=== PATIENT | female | born 1980 | race Two or more races ===

== ENCOUNTER 2016-09-04 13:18 | Emergency (ER) | payer OTHER ==
[~2016-09-04] VITALS: Ht 157.5 cm; Wt 138.3 kg
[2016-09-04 13:32] VITALS: BP 159/95
[2016-09-04] MEDS ORDERED: AMOX1TAB61 PO (14:02)
--- NOTE | 2016-09-04 14:02 | PHYS DOC ---
Past Medical History Past Medical History: Asthma Past Surgical History: Tonsillectomy Alcohol Use: None Drug Use: None Adult General Chief Complaint Chief Complaint: SORE THROAT HPI HPI Patient is a 35 year old patient presents to the emergency department with a 3 day history of a sore throat. She states she's she's had fevers at night although has taken her temperature. She states she's taken Tylenol for pain and discomfort with minimal relief. Patient denies any nausea vomiting. Review of Systems Review of Systems Constitutional: Fever at home Eyes: Denies change in visual acuity, redness, or eye pain [] HENT: Denies nasal congestion complaint sore throat Respiratory: Denies cough or shortness of breath [] Cardiovascular: No additional information not addressed in HPI [] GI: Denies abdominal pain, nausea, vomiting, bloody stools or diarrhea [] : Denies dysuria or hematuria [] Musculoskeletal: Denies back pain or joint pain [] Integument: Denies rash or skin lesions [] Neurologic: Denies headache, focal weakness or sensory changes [] Endocrine: Denies polyuria or polydipsia [] Allergies Allergies Allergies Coded Allergies Type Severity Reaction Last Updated Verified metformin Allergy Unknown 09/04/16 Yes Physical Exam Physical Exam Constitutional: Well developed, well nourished, no acute distress, non-toxic appearance. [] HENT: Normocephalic, atraumatic, bilateral external ears normal, oropharynx moist, no oral exudates, nose normal. Left tympanic membrane appears to be normal right tympanic membrane appears to be inflamed and red. Throat appears to have postnasal drip. Patient was noted to have frontal and maxillary sinus tenderness. Eyes: PERRLA, EOMI, conjunctiva normal, no discharge. [] Neck: Normal range of motion, no tenderness, supple, no stridor. [] Cardiovascular:Heart rate regular rhythm, no murmur [] Lungs & Thorax: Bilateral breath sounds clear to auscultation [] Skin: Warm, dry, no erythema, no rash. [] Back: No tenderness Extremities: No tenderness, no cyanosis, no clubbing, ROM intact, no edema. [] Neurologic: Alert and oriented X 3, normal motor function, normal sensory function, no focal deficits noted. [] Psychologic: Affect normal, judgement normal, mood normal. [] Current Patient Data Vital Signs Vital Signs Date Time Temp Pulse Resp B/P (MAP) Pulse Ox O2 Delivery O2 Flow Rate FiO2 09/04/16 13:32 98.5 113 22 99 Room Air 98.5 EKG EKG [] Radiology/Procedures Radiology/Procedures [] Course & Med Decision Making Course & Med Decision Making Pertinent Labs and Imaging studies reviewed. (See chart for details) Rapid strep was negative. Patient's will be placed on Augmentin for sinus infection. Also recommended Sudafed to help with the sinus pressure. Also recommended Mucinex DM. Patient agrees with discharge instructions treatment regimens and follow-up recommendations. Recommended plenty of fluids. Tylenol or ibuprofen for pain and discomfort. Patient agrees with discharge instructions treatment regimens and follow-up recommendations. [] Dragon Disclaimer Dragon Disclaimer This electronic medical record was generated, in whole or in part, using a voice recognition dictation system. Departure Departure Impression: Primary Impression: Sinusitis Disposition: HOME, SELF-CARE Condition: STABLE Referrals: PATRIA HUNT MD (PCP) Patient Instructions: Sinusitis, [id number] Additional Instructions: Activity as tolerated. Tylenol or ibuprofen for pain and discomfort. Sudafed will help with the sinus pressure take as directed by real estate sales associate over- the-counter. Mucinex DM will also help with the nasal congestion. Take this as instructed by real estate sales associate [id number]. Drink plenty of fluids. Antibiotic as prescribed x-ray take all the medication as prescribed. If he should start feeling better. Follow-up to primary care physician next 3-5 days. Return back to emergency prior signs symptoms become worse. Scripts Amoxicillin/Potassium Clav (AUGMENTIN 875-125 TABLET) 1 Each Tablet 1 TAB PO BID, #20 TAB Prov: VANDA KELSEY APRN 09/04/16 VANDA KELSEY SHAREPOINT APPLICATION DEVELOPER Sep 04, 2016 14:02
[2016-09-04 15:44] LABS: NEGATIVE OBC STREP NEG; POSITIVE OBC STREP POS
== END 2016-09-04 14:07 | disposition home or self-care (01) ==
LOC: ER 13:18
DX: J32.9 Chronic sinusitis, unspecified (principal); J45.909 Unspecified asthma, uncomplicated; Z88.8 Allergy status to other drugs, medicaments and biological substances
CPT/HCPCS: 87070; 87880; 99283

== ENCOUNTER 2016-09-29 20:04 | Emergency (ER) | payer OTHER ==
[~2016-09-29] VITALS: Ht 157.5 cm; Wt 138.3 kg
[~2016-09-29 20:04] MED LIST: AMOX1TAB61 PO
[2016-09-29 20:11] VITALS: BP 156/93
[2016-09-29] MEDS ORDERED: NAPR500T3 PO (20:29)
[2016-09-29] MEDS ORDERED: PRED20TA PO (20:29)
[2016-09-29] MEDS ORDERED: FLUC150T PO (20:29)
--- NOTE | 2016-09-29 20:30 | PHYS DOC ---
Past Medical History Past Medical History: Asthma Past Surgical History: Tonsillectomy Alcohol Use: None Drug Use: None Adult General Chief Complaint Chief Complaint: SHOULDER INJURY [facility] HPI Patient is a 35 year old female presents to the emergency department stating that she has having right shoulder right elbow pain and discomfort for the last 6 months. She states that she has been seen by her primary care physician and an orthopedic in which they prescribed medication which does not help. She states that she is getting ready to start a new job and needs to find out what she can take to help with the pain and discomfort. Patient states she has an MRI but that's not for 2 weeks. Patient denies any trauma or injury. Patient has full range of motion of the extremities. Patient is right-hand dominant. Patient also states that she has a rash between bilateral thighs. Patient states that she has had this rash for over a year. Patient states that she has been seen by doctors who are unable to identify what the rash is related to. Patient states that it salazar and stings mainly at night when she is trying to sleep. Review of Systems Review of Systems Constitutional: Denies fever or chills [] Eyes: Denies change in visual acuity, redness, or eye pain [] HENT: Denies nasal congestion or sore throat [] Respiratory: Denies cough or shortness of breath [] Cardiovascular: No additional information not addressed in HPI [] GI: Denies abdominal pain, nausea, vomiting, bloody stools or diarrhea [] : Denies dysuria or hematuria [] Musculoskeletal: Denies back pain. Complaining of right shoulder right elbow pain and discomfort. Integument: Complaining of rash on bilateral inner thighs, no skin lesions noted Neurologic: Denies headache, focal weakness or sensory changes [] Endocrine: Denies polyuria or polydipsia [] Allergies Allergies Allergies Coded Allergies Type Severity Reaction Last Updated Verified metformin Allergy Unknown 09/04/16 Yes Physical Exam Physical Exam Constitutional: Well developed, well nourished, no acute distress, non-toxic appearance. [] HENT: Normocephalic, atraumatic, bilateral external ears normal, oropharynx moist, no oral exudates, nose normal. [] Eyes: PERRLA, EOMI, conjunctiva normal, no discharge. [] Neck: Normal range of motion, no tenderness, supple, no stridor. [] Cardiovascular:Heart rate regular rhythm Lungs & Thorax: No respiratory distress noted Skin: Warm, dry, no erythema, evaluation on bilateral inner thighs. Do not appreciate any type of rash noted within the inner thigh area. Back: No tenderness Extremities: Right shoulder, right elbow tenderness, no cyanosis, no clubbing, ROM intact, no edema. Patient with full range of motion noted to both the shoulder in the elbow. She didn't exhibit tenderness in the rotator cuff area of the right shoulder. Peripheral pulses 2+ cap refill brisk less than 2 seconds. Neurologic: Alert and oriented X 3, normal motor function, normal sensory function, no focal deficits noted. [] Psychologic: Affect normal, judgement normal, mood normal. [] Current Patient Data Vital Signs Vital Signs Date Time Temp Pulse Resp B/P (MAP) Pulse Ox O2 Delivery O2 Flow Rate FiO2 09/29/16 20:11 85 16 98 Room Air EKG EKG [] Radiology/Procedures Radiology/Procedures [] Course & Med Decision Making Course & Med Decision Making Pertinent Labs and Imaging studies reviewed. (See chart for details) Spoke with patient regards to the information provided as these symptoms of been going on anywhere from 6 months to one year. Explained to patient that this is a situation like to be taking care of with a primary care physician or orthopedic. Here in the emergency department we rule out emergency type situations. Patient states seems to think that this is an emergency as she states that's why I'm here as this is an emergency. Recommended Benadryl 25 mg every 6 hours to help with the itching and irritation of the areas. Patient will also be provided with a Diflucan in which she can take one tablet today and one tablet in another week if she still has symptoms. Also paged patient on a prednisone to help with the irritation. Patient will also be recommended to follow-up with an orthopedic as which she has been identified. She'll be provided with naproxen 500 mg twice a day. She'll be placed in a sling with recommendations to rest the shoulder and the arm until she follows up with orthopedic. Recommended ice packs on 20 minutes off 20 minutes several times a day to the right shoulder. Patient will be discharged home in stable condition. Signs and symptoms to return back to emergency department as been provided. [place] Disclaimer Dragon Disclaimer This electronic medical record was generated, in whole or in part, using a voice recognition dictation system. Departure Departure Impression: Primary Impression: Right shoulder pain Additional Impressions: Right elbow pain Rash and nonspecific skin eruption Disposition: 01 HOME, SELF-CARE Condition: STABLE Referrals: PATRIA HUNT MD (PCP) PRAMOD REICH MD, LISA MD Patient Instructions: Rash, [id number], Shoulder Pain, [id number], Tennis Elbow, [id number] Additional Instructions: Activity as tolerated. Wear the sling until you follow-up with orthopedic. However take your arm out of the sling 4-5 times a day and do active range of motion. Naproxen as prescribed take this medication with food. If you develop upset stomach stopped taking the medication. Benadryl 25 mg may be taken every 6 hours to help with itching and irritation of your rash. Diflucan 1 tablet today he may repeat the dose of one week. Prednisone may also help with the rash area as well as pain and discomfort to the right shoulder and right elbow. Ice packs to the right shoulder right elbow on 20 minutes off 20 minutes several times a day. Keep the areas between your eyes clean dry and cool to prevent irritation and itching. Follow-up with orthopedic within the next week. Follow-up to primary care physician or assistant head cashier within the next week in regards to your rash. Return to emergency prior signs and symptoms of become worse. Scripts Naproxen (NAPROXEN) 500 Mg Tablet 1 TAB PO BID, #60 TAB Prov: VANDA KELSEY APRN 09/29/16 Prednisone (PREDNISONE) 20 Mg Tablet 40 MG PO DAILY, #14 TAB Prov: VANDA KELSEY APRN 09/29/16 Fluconazole (DIFLUCAN) 150 Mg Tablet 1 TAB PO ONCE, #1 TAB 1 Refill Prov: VANDA KELSEY APRN 09/29/16 Problem Qualifiers VANDA KELSEY APRN Sep 29, 2016 20:30
--- NOTE | 2016-09-30 08:05 | RAD ---
Right elbow, 3 views, 09/29/2016: History: Pain and discomfort No fracture or dislocation is identified. There is mild spurring at the elbow joint. No significant joint effusion is evident. IMPRESSION: 1. Mild degenerative change. 2. No acute bony abnormality is detected. Right shoulder, 3 views, 09/29/2016: No fracture or dislocation is identified. The periarticular soft tissues are unremarkable. IMPRESSION: No acute right shoulder abnormality is detected.
== END 2016-09-29 21:21 | disposition home or self-care (01) ==
LOC: ER 20:04
DX: M25.511 Pain in right shoulder (principal); M25.521 Pain in right elbow; R21 Rash and other nonspecific skin eruption; J45.909 Unspecified asthma, uncomplicated; Z88.8 Allergy status to other drugs, medicaments and biological substances
CPT/HCPCS: 73030; 73080; 99284

== ENCOUNTER → 2017-07-23 | Day surgery (SDC) | payer OTHER ==
[~2017-07-23] MED LIST changes: +0.9 % SODIUM CHLORIDE 10 ML DISP.SYRIN. IV; -AMOX1TAB61 PO; +CALCIUM CARBONATE 500 MG TAB.CHEW PO; +DEXAMETHASONE SOD PHOS 20 MG/5 ML VIAL.; +FAMOTIDINE 20 MG/2 ML VIAL; +HYDROcodone/APAP 5/325MG 1 TAB TABLET PO; +KETOROLAC 30 MG/ML INJ FOR OR. INJ; +LIDOCAINE 1% PF 2 ML VIAL. ID; +LIDOCAINE 2% PF Vial for OR 5 ML VIAL.; +MAG HYDROX/ALUMINUM HYD/SIMETH 30 ML ORAL.SUSP PO; +MORPHINE SULFATE 4 MG/ML DISP.SYRIN. IV; +NALOXONE 0.4 MG/ML VIAL. IV; +ONDANSETRON PF 4 MG/2 ML VIAL.; +ONDANSETRON PF 4 MG/2 ML VIAL. IV; +PROCHLORPERAZINE 10 MG/2 ML VIAL. IV; +PROPOFOL 0 ML IV; +PROPOFOL 20 ML IV; +SEVOFLURANE 31 TO 60 MINUTES. IH; +SIMETHICONE 80 MG TAB.CHEW PO; +diphenhydrAMINE 50 MG/ML VIAL IV; +diphenhydrAMINE HCL 25 MG CAPSULE PO; +fentaNYL PF VIAL 100 MCG/2 ML VIAL; +fentaNYL PF VIAL 100 MCG/2 ML VIAL IV
[2017-07-23] MEDS: IV RINGERS,LACTATED 1000ML 1,000 ML IV (07:00)
[2017-07-23 09:43] LABS: U PREG PATIENT NEGATIVE (NEG)
[2017-07-23 09:44] LABS: NEG OBC UR NEG; POS OBC UR POS
[2017-07-23] MEDS: BUPIVACAINE-EPI 0.25%-1:200000 50 ML VIAL. (11:35)
== END | disposition home or self-care (01) ==
LOC: SURG 08:53
DX: D06.0 Carcinoma in situ of endocervix (principal); N72 Inflammatory disease of cervix uteri; N88.8 Other specified noninflammatory disorders of cervix uteri; N81.2 Incomplete uterovaginal prolapse; Z98.890 Other specified postprocedural states; G43.909 Migraine, unspecified, not intractable, without status migrainosus; J45.909 Unspecified asthma, uncomplicated; E66.9 Obesity, unspecified; Z68.43 Body mass index [BMI] 50.0-59.9, adult; K21.9 Gastro-esophageal reflux disease without esophagitis; F17.210 Nicotine dependence, cigarettes, uncomplicated; E28.2 Polycystic ovarian syndrome; Z88.8 Allergy status to other drugs, medicaments and biological substances; Z82.49 Family history of ischemic heart disease and other diseases of the circulatory system; Z80.0 Family history of malignant neoplasm of digestive organs; Z80.59 Family history of malignant neoplasm of other urinary tract organ
CPT/HCPCS: 57522; 81025; 88305; A7015; J0780; J1100; J1885; J2405; J2704; J3010; S0028

== ENCOUNTER 2017-11-27 06:41 | Emergency (ER) | payer OTHER ==
[~2017-11-27] VITALS: Ht 157.5 cm; Wt 135.4 kg
[~2017-11-27 06:41] MED LIST changes: -0.9 % SODIUM CHLORIDE 10 ML DISP.SYRIN. IV; +ACET325T9 PO; +AMOX1TAB61 PO; -CALCIUM CARBONATE 500 MG TAB.CHEW PO; -DEXAMETHASONE SOD PHOS 20 MG/5 ML VIAL.; -FAMOTIDINE 20 MG/2 ML VIAL; +FLUC150T PO; -HYDROcodone/APAP 5/325MG 1 TAB TABLET PO; -KETOROLAC 30 MG/ML INJ FOR OR. INJ; -LIDOCAINE 1% PF 2 ML VIAL. ID; -LIDOCAINE 2% PF Vial for OR 5 ML VIAL.; -MAG HYDROX/ALUMINUM HYD/SIMETH 30 ML ORAL.SUSP PO; -MORPHINE SULFATE 4 MG/ML DISP.SYRIN. IV; -NALOXONE 0.4 MG/ML VIAL. IV; +NAPR-514 PO; -ONDANSETRON PF 4 MG/2 ML VIAL.; -ONDANSETRON PF 4 MG/2 ML VIAL. IV; +PRED20TA PO; +PROAIR RESPICL90 MCG IH; -PROCHLORPERAZINE 10 MG/2 ML VIAL. IV; -PROPOFOL 0 ML IV; -PROPOFOL 20 ML IV; -SEVOFLURANE 31 TO 60 MINUTES. IH; -SIMETHICONE 80 MG TAB.CHEW PO; -diphenhydrAMINE 50 MG/ML VIAL IV; -diphenhydrAMINE HCL 25 MG CAPSULE PO; -fentaNYL PF VIAL 100 MCG/2 ML VIAL; -fentaNYL PF VIAL 100 MCG/2 ML VIAL IV
--- NOTE | 2017-11-27 08:04 | PHYS DOC ---
Past Medical History Past Medical History: Asthma, Other Additional Past Medical Histor: morbid obesity, PCOD, cervical cancer Past Surgical History: Tonsillectomy, Other Additional Past Surgical Histo: right eye surgery, ear tubes, laser removal of cervical cancer Alcohol Use: None Drug Use: None Adult General Chief Complaint Chief Complaint: VAGINAL PROBLEM HPI HPI 36-year-old female who presents with complaint of vaginal pain, discharge and urinary discomfort that has been present for the last couple of months. She was seen by her provider and had prescribed her some kind of a cream but she is not sure what it was. She states it is just not been working. She rates pain as being moderate and states that pain is worsened with intercourse and with urinating. She denies any abdominal pain, nausea or vomiting. She does indicate that the discharge has had a foul odor to it. Review of Systems Review of Systems Constitutional: Denies fever or chills [] Respiratory: Denies cough or shortness of breath [] Cardiovascular: Denies chest pain[] GI: Denies abdominal pain, nausea, vomiting or diarrhea [] : Complains of urinary discomfort and vaginal pain with discharge[] Musculoskeletal: Denies back pain or joint pain [] Integument: Denies rash or skin lesions [] All other systems were reviewed and found to be within normal limits, except as documented in this note. Allergies Allergies Allergies Coded Allergies Type Severity Reaction Last Updated Verified metformin Adverse Reaction Unknown THREW UP,HEART BEAT WAS FAST 07/23/17 Yes Physical Exam Physical Exam Constitutional: Well developed, well nourished, no acute distress, non-toxic appearance. [] Neck: Normal range of motion, no tenderness, supple, no stridor. [] Cardiovascular:Heart rate regular rhythm, no murmur [] Lungs & Thorax: Bilateral breath sounds clear to auscultation [] Abdomen: Bowel sounds normal, soft, no tenderness. [] Skin: Warm, dry, no erythema, no rash. [] : Pelvic exam performed with nurse cokeman present. External genitalia is unremarkable. Vaginal exam demonstrates small amount of thick, white discharge. There is no cervical motion tenderness. [] Neurologic: Alert and oriented X 3, normal motor function, normal sensory function, no focal deficits noted. [] Current Patient Data Vital Signs Vital Signs Date Time Temp Pulse Resp B/P (MAP) Pulse Ox O2 Delivery O2 Flow Rate FiO2 11/27/17 08:36 88 20 141/87 (105) 98 Room Air 11/27/17 07:05 98.4 98.4 Lab Values Laboratory Tests Test 11/27/17 07:35 Urine Collection Type Unknown Urine Color Yellow Urine Clarity Clear Urine pH 5.0 Urine Specific [place] >=1.030 Urine Protein Negative mg/dL (NEG-TRACE) Urine Glucose (UA) >=1000 mg/dL (NEG) Urine Ketones (Stick) Negative mg/dL (NEG) Urine Blood Moderate (NEG) Urine Nitrite Negative (NEG) Urine Bilirubin Negative (NEG) Urine Urobilinogen Dipstick 0.2 mg/dL (0.2 mg/dL) Urine Leukocyte Esterase Negative (NEG) Urine RBC Occ /HPF (0-2) Urine WBC 1-4 /HPF (0-4) Urine Squamous Epithelial Cells Many /LPF Urine Bacteria Few /HPF (0-FEW) Urine Mucus Marked /LPF Microbiology 11/27/17 Wet Prep - Final, Complete EKG EKG [] Radiology/Procedures Radiology/Procedures [] Course & Med Decision Making Course & Med Decision Making Pertinent Labs and Imaging studies reviewed. (See chart for details) [] Dragon Disclaimer Dragon Disclaimer This electronic medical record was generated, in whole or in part, using a voice recognition dictation system. Departure Departure Impression: Primary Impression: Vaginal pain Disposition: 01 HOME, SELF-CARE Condition: STABLE Referrals: PATRIA HUNT MD (PCP) Patient Instructions: Pain of Unknown Etiology (Pain without a known Cause) Additional Instructions: Keep appointment with your PHARMACY STOCK CLERK. Scripts Tramadol Hcl (TRAMADOL HCL) 50 Mg Tablet 50 MG PO Q6HRS PRN for PAIN, #10 TAB Prov: GEENA MEADE Jr. DO 11/27/17 GEENA MEADE Jr. DO Nov 27, 2017 08:04
[2017-11-27 08:14] LABS: BILIRUBIN,URINE NEGATIVE (NEG); CLARITY,URINE CLEAR; COLOR,URINE YELLOW; NITRITE,URINE NEGATIVE (NEG); PROTEIN,URINE NEGATIVE (NEG-TRACE); UROBILINOGEN,URINE 0.2 mg/dL (0.2 mg/dL)
[2017-11-27 08:21] LABS: SQUAMOUS EPITHELIAL CELL,UR MANY /LPF
[2017-11-27 08:22] LABS: BACTERIA,URINE FEW /HPF (0-FEW); RBC,URINE OCC /HPF (0-2)
[2017-11-27 08:36] VITALS: BP 141/87
[2017-11-27] MEDS ORDERED: TRAM50TA PO (08:58)
[2017-11-27] MEDS ORDERED: FLUCONAZOLE 100 MG TABLET. PO ONE (09:00)
[2017-11-28 14:26] LABS: GC PROBE Negative (Negative)
== END 2017-11-27 09:11 | disposition home or self-care (01) ==
LOC: ER 06:41
DX: R10.2 Pelvic and perineal pain (principal); N89.8 Other specified noninflammatory disorders of vagina; J45.909 Unspecified asthma, uncomplicated; E66.01 Morbid (severe) obesity due to excess calories; E28.2 Polycystic ovarian syndrome; Z68.43 Body mass index [BMI] 50.0-59.9, adult; Z88.8 Allergy status to other drugs, medicaments and biological substances
CPT/HCPCS: 36415; 81001; 86695; 87491; 87591; 99284; Q0111

== ENCOUNTER 2018-03-29 00:46 | Emergency (ER) | payer OTHER ==
[~2018-03-29] VITALS: Ht 157.5 cm; Wt 135.2 kg
[~2018-03-29 00:46] MED LIST changes: +TRAM50TA PO
[2018-03-29] MEDS ORDERED: PROCHLORPERAZINE 10 MG/2 ML VIAL. IV ONE (01:15)
[2018-03-29] MEDS ORDERED: IV NORMAL SALINE 1000ML BAG 1,000 ML IV SCH (01:15)
--- NOTE | 2018-03-29 01:18 | PHYS DOC ---
Past Medical History Past Medical History: Asthma, GERD, Other Additional Past Medical Histor: morbid obesity, PCOD, cervical cancer Past Surgical History: Tonsillectomy, Other Additional Past Surgical Histo: right eye surgery, ear tubes, laser removal of cervical cancer Alcohol Use: None Drug Use: None Adult General Chief Complaint Chief Complaint: ABDOMINAL PAIN HPI HPI Patient is a 37 year old female who presents with epigastric and right upper quadrant abdominal pain for the past 10 days. Nausea and vomiting during this time. No diarrhea. No fever or chills. No blood in the emesis. Food makes symptoms worse as far as the nausea and vomiting. Her medicine for her reflux does not do anything to improve any of the discomfort. No home pain medicines have been taken. [] Review of Systems Review of Systems Constitutional: Denies fever or chills [] Eyes: Denies change in visual acuity, redness, or eye pain [] HENT: Denies nasal congestion or sore throat [] Respiratory: Denies cough or shortness of breath [] Cardiovascular: No chest pain or palpitations[] GI: See history of present illness[] : Denies dysuria or hematuria [] Musculoskeletal: Denies back pain or joint pain [] Integument: Denies rash or skin lesions [] Neurologic: Denies headache, focal weakness or sensory changes [] Endocrine: Denies polyuria or polydipsia [] All other systems were reviewed and found to be within normal limits, except as documented in this note. Current Medications Current Medications Current Medications Medications (Trade) Dose Ordered Sig/Binu Start Time Stop Time Status Last Admin Dose Admin Prochlorperazine Edisylate (Compazine) 5 mg 1X ONCE 03/29/18 01:15 03/29/18 01:16 DC 03/29/18 01:31 5 MG Sodium Chloride 1,000 ml @ 1,000 mls/hr Q1H 03/29/18 01:15 03/29/18 02:14 DC 03/29/18 01:31 1,000 MLS/HR Allergies Allergies Allergies Coded Allergies Type Severity Reaction Last Updated Verified metformin Adverse Reaction Unknown THREW UP,HEART BEAT WAS FAST 07/23/17 Yes Physical Exam Physical Exam Constitutional: Well developed, well nourished, no acute distress, non-toxic appearance. [] HENT: Normocephalic, atraumatic, bilateral external ears normal, oropharynx moist, no oral exudates, nose normal. [] Eyes: PERRLA, EOMI, conjunctiva normal, no discharge. [] Neck: Normal range of motion, no tenderness, supple, no stridor. [] Cardiovascular:Heart rate regular rhythm, no murmur [] Lungs & Thorax: Bilateral breath sounds clear to auscultation [] Abdomen: Bowel sounds normal, soft, obese, epigastric tenderness, no rebound, no guarding, no rigidity, able to sit up without any significant difficulty, no masses, no pulsatile masses. [] Skin: Warm, dry, no erythema, no rash. [] Back: No tenderness, no CVA tenderness. [] Extremities: No tenderness, no cyanosis, no clubbing, ROM intact, no edema. [] Neurologic: Alert and oriented X 3, normal motor function, normal sensory function, no focal deficits noted. [] Psychologic: Affect normal, judgement normal, mood normal. [] Current Patient Data Vital Signs Vital Signs Date Time Temp Pulse Resp B/P (MAP) Pulse Ox O2 Delivery O2 Flow Rate FiO2 03/29/18 01:10 98.0 107 37 132/68 (89) 92 Room Air 98.0 Lab Values Laboratory Tests Test 03/29/18 00:50 03/29/18 01:07 03/29/18 01:23 Urine Collection Type Unknown Urine Color Yellow Urine Clarity Clear Urine pH 6.0 Urine Specific [place] 1.025 Urine Protein Negative mg/dL (NEG-TRACE) Urine Glucose (UA) Negative mg/dL (NEG) Urine Ketones (Stick) Negative mg/dL (NEG) Urine Blood Small (NEG) Urine Nitrite Negative (NEG) Urine Bilirubin Negative (NEG) Urine Urobilinogen Dipstick 1.0 mg/dL (0.2 mg/dL) Urine Leukocyte Esterase Negative (NEG) Urine RBC 6-10 /HPF (0-2) Urine WBC 1-4 /HPF (0-4) Urine Squamous Epithelial Cells Mod /LPF Urine Bacteria Few /HPF (0-FEW) Urine Mucus Marked /LPF POC Urine HCG, Qualitative Hcg negative (Negative) White Blood Count 14.5 x10^3/uL (4.0-11.0) H Red Blood Count 4.79 x10^6/uL (3.50-5.40) Hemoglobin 14.8 g/dL (12.0-15.5) Hematocrit 44.2 % (36.0-47.0) Mean Corpuscular Volume 92 fL (79-100) Mean Corpuscular Hemoglobin 31 pg (25-35) Mean Corpuscular Hemoglobin Concent 33 g/dL (31-37) Red Cell Distribution Width 12.8 % (11.5-14.5) Platelet Count 357 x10^3/uL (140-400) Neutrophils (%) (Auto) 58 % (31-73) Lymphocytes (%) (Auto) 34 % (24-48) Monocytes (%) (Auto) 6 % (0-9) Eosinophils (%) (Auto) 1 % (0-3) Basophils (%) (Auto) 1 % (0-3) Neutrophils # (Auto) 8.4 x10^3uL (1.8-7.7) H Lymphocytes # (Auto) 5.0 x10^3/uL (1.0-4.8) H Monocytes # (Auto) 0.9 x10^3/uL (0.0-1.1) Eosinophils # (Auto) 0.2 x10^3/uL (0.0-0.7) Basophils # (Auto) 0.1 x10^3/uL (0.0-0.2) Prothrombin Time 12.6 SEC (11.7-14.0) Prothrombin Time INR 1.0 (0.8-1.1) Sodium Level 138 mmol/L (136-145) Potassium Level 4.0 mmol/L (3.5-5.1) Chloride Level 102 mmol/L (98-107) Carbon Dioxide Level 24 mmol/L (21-32) Anion Gap 12 (6-14) Blood Urea Nitrogen 11 mg/dL (7-20) Creatinine 0.8 mg/dL (0.6-1.0) Estimated GFR (Cockcroft-Gault) 80.3 BUN/Creatinine Ratio 14 (6-20) Glucose Level 161 mg/dL (70-99) H Calcium Level 9.2 mg/dL (8.5-10.1) Total Bilirubin 0.5 mg/dL (0.2-1.0) Aspartate Amino Transferase (AST) 34 U/L (15-37) Alanine Aminotransferase (ALT) 53 U/L (14-59) Alkaline Phosphatase 104 U/L (46-116) Total Protein 8.0 g/dL (6.4-8.2) Albumin 3.3 g/dL (3.4-5.0) L Albumin/Globulin Ratio 0.7 (1.0-1.7) L Lipase 134 U/L (73-393) Laboratory Tests 03/29/18 01:23 Laboratory Tests 03/29/18 01:23 EKG EKG [] Radiology/Procedures Radiology/Procedures PROCEDURE: CT ABDOMEN PELVIS WO CONTRAST Abdominal and Pelvis CT, Without Contrast: History: Epigastric and right upper quadrant pain. Comparison: None. Procedure: Axial images are obtained of the abdomen and pelvis, without IV or oral contrast. CT Abdomen without Contrast: Findings: Evaluation of solid organs is limited without contrast. Evaluation of stomach and bowel is limited without oral contrast. The proximal and mid small bowel is mildly dilated. The distal small bowel and colon is collapsed however a exact transition zone is not seen. Liver: Normal. Spleen: Normal. Pancreas: Normal. Adrenal Glands: Normal. Kidneys: Normal. There is no free air or free fluid. There is no lymphadenopathy. Impression: Please see CT Pelvis without Contrast. End Impression. CT Pelvis without Contrast: Findings: The urinary bladder appears normal. There is no free fluid. There is no lymphadenopathy. There is no pericolonic inflammation identified. Impression: Possible partial small bowel obstruction.[] Course & Med Decision Making Course & Med Decision Making Pertinent Labs and Imaging studies reviewed. (See chart for details) ED course: Patient arrived, was placed in bed, in tolerated exam well. Patient was given IV fluids as well as antiemetics which resolved the pain that she was feeling. Patient was. Tolerant in the emergency department. Discussed findings including the CT findings with partial small bowel obstruction with the patient. At this time do not believe that she does have a bowel obstruction given the improvement that she experienced. Offered admission but patient defers at this time. We'll attempt outpatient management. Medical decision making: There is no evidence of perforation nor intractable pain. There may be a partial small bowel obstruction noted on the CT scan and discussed this with the patient. No evidence of significant electrolyte abnormality, nor urinary tract infection. No evidence of appendicitis nor cholecystitis. No NO Evidence of pancreatitis[] Dragon Disclaimer Dragon Disclaimer This electronic medical record was generated, in whole or in part, using a voice recognition dictation system. Departure Departure Impression: Primary Impression: Abdominal pain Additional Impression: Nausea and vomiting Disposition: 01 HOME, SELF-CARE Condition: IMPROVED Referrals: PATRIA HUNT MD (PCP) Follow-up in 2 days Patient Instructions: Abdominal Pain, Diet for Diarrhea, Adult, Nausea and Vomiting Additional Instructions: Drink plenty of fluids, frequent small sips. No fatty foods, no milk, and no pepper for the next 48 hours. For the next 48 hours eat a diet rich in carbohydrates with foods such as bananas, rice, applesauce, and toast. Follow- up with your regular doctor in 2 days. Return to the ER if unable to tolerate liquids, worsening pain, or any other concerns. Scripts Hyoscyamine Sulfate (LEVSIN) 0.125 Mg Tablet 0.125 MG PO QID, #30 TAB Prov: BALDO LANDAVERDE DO 03/29/18 Metoclopramide Hcl (REGLAN) 10 Mg Tablet 10 MG PO QIDACHS, #30 TAB 0 Refills Prov: BALDO LANDAVERDE DO 03/29/18 Problem Qualifiers Primary Impression: Abdominal pain Abdominal location: epigastric Qualified Codes: R10.13 - Epigastric pain Additional Impression: Nausea and vomiting Vomiting type: unspecified Vomiting Intractability: non-intractable Qualified Codes: R11.2 - Nausea with vomiting, unspecified BALDO LANDAVERDE DO Mar 29, 2018 01:18
[2018-03-29 01:43] LABS: BASO # 0.1 x10^3/uL (0.0-0.2); BASO % 1 % (0-3); EOS # 0.2 x10^3/uL (0.0-0.7); EOS % 1 % (0-3); HEMATOCRIT 44.2 % (36.0-47.0); HEMOGLOBIN 14.8 g/dL (12.0-15.5); LYMPH % 34 % (24-48); MEAN CORPUSCULAR HEMOGLOBIN 31 pg (25-35); MEAN CORPUSCULAR HGB CONC 33 g/dL (31-37); MEAN CORPUSCULAR VOLUME 92 fL (79-100); MONO # 0.9 x10^3/uL (0.0-1.1); MONO % 6 % (0-9); NEUT # 8.4 x10^3uL (1.8-7.7); NEUT % 58 % (31-73); PLATELET COUNT 357 x10^3/uL (140-400); RED BLOOD COUNT 4.79 x10^6/uL (3.50-5.40); RED CELL DISTRIBUTION WIDTH 12.8 % (11.5-14.5); WHITE BLOOD COUNT 14.5 x10^3/uL (4.0-11.0)
[2018-03-29 01:45] LABS: BILIRUBIN,URINE NEGATIVE (NEG); CLARITY,URINE CLEAR; COLOR,URINE YELLOW; NITRITE,URINE NEGATIVE (NEG); PROTEIN,URINE NEGATIVE (NEG-TRACE)
[2018-03-29 01:55] LABS: CALCIUM 9.2 mg/dL (8.5-10.1); CREATININE 0.8 mg/dL (0.6-1.0); GFR 80.3
[2018-03-29 01:59] LABS: PROTHROMBIN TIME PATIENT 12.6 SEC (11.7-14.0)
[2018-03-29 02:01] LABS: ALBUMIN 3.3 g/dL (3.4-5.0); ALBUMIN/GLOBULIN RATIO 0.7 (1.0-1.7); TOTAL BILIRUBIN 0.5 mg/dL (0.2-1.0)
[2018-03-29 02:17] LABS: BACTERIA,URINE FEW /HPF (0-FEW); SQUAMOUS EPITHELIAL CELL,UR MOD /LPF
--- NOTE | 2018-03-29 02:42 | RAD ---
Abdominal and Pelvis CT, Without Contrast: History: Epigastric and right upper quadrant pain. Comparison: None. Procedure: Axial images are obtained of the abdomen and pelvis, without IV or oral contrast. CT Abdomen without Contrast: Findings: Evaluation of solid organs is limited without contrast. Evaluation of stomach and bowel is limited without oral contrast. The proximal and mid small bowel is mildly dilated. The distal small bowel and colon is collapsed however a exact transition zone is not seen. Liver: Normal. Spleen: Normal. Pancreas: Normal. Adrenal Glands: Normal. Kidneys: Normal. There is no free air or free fluid. There is no lymphadenopathy. Impression: Please see CT Pelvis without Contrast. End Impression. CT Pelvis without Contrast: Findings: The urinary bladder appears normal. There is no free fluid. There is no lymphadenopathy. There is no pericolonic inflammation identified. Impression: Possible partial small bowel obstruction. End impression PQRS Compliance Statement: One or more of the following individualized dose reduction techniques were utilized for this examination: 1. Automated exposure control 2. Adjustment of the mA and/or kV according to patient size 3. Use of iterative reconstruction technique Electronically signed by: Mauricio Mccartney III, MD (03/29/2018 2:37 AM) [id number]
[2018-03-29 03:47] VITALS: BP 116/84
[2018-03-29] MEDS ORDERED: METO10TA81 PO (03:50)
[2018-03-29] MEDS ORDERED: HYOS0.1264 PO (03:50)
== END 2018-03-29 04:02 | disposition home or self-care (01) ==
LOC: ER 00:46
DX: R10.13 Epigastric pain (principal); R11.2 Nausea with vomiting, unspecified; R10.11 Right upper quadrant pain; K21.9 Gastro-esophageal reflux disease without esophagitis; J45.909 Unspecified asthma, uncomplicated; E66.01 Morbid (severe) obesity due to excess calories; Z68.43 Body mass index [BMI] 50.0-59.9, adult; Z88.8 Allergy status to other drugs, medicaments and biological substances
CPT/HCPCS: 36415; 74176; 80053; 81001; 81025; 83690; 85025; 85610; 96361; 96374; 99284; J0780; J7030

== ENCOUNTER 2018-04-11 00:10 | Emergency (ER) | payer OTHER ==
[~2018-04-11] VITALS: Ht 157.5 cm; Wt 136.1 kg
[~2018-04-11 00:10] MED LIST changes: +HYOS0.1264 PO; +METO10TA81 PO
[2018-04-11 01:29] LABS: BASO # 0.1 x10^3/uL (0.0-0.2); BASO % 0 % (0-3); EOS # 0.2 x10^3/uL (0.0-0.7); EOS % 1 % (0-3); HEMOGLOBIN 15.2 g/dL (12.0-15.5); LYMPH # 3.1 x10^3/uL (1.0-4.8); LYMPH % 19 % (24-48); MEAN CORPUSCULAR HEMOGLOBIN 31 pg (25-35); MEAN CORPUSCULAR HGB CONC 34 g/dL (31-37); MEAN CORPUSCULAR VOLUME 91 fL (79-100); MONO # 1.4 x10^3/uL (0.0-1.1); MONO % 9 % (0-9); NEUT # 11.7 x10^3uL (1.8-7.7); NEUT % 71 % (31-73); PLATELET COUNT 370 x10^3/uL (140-400); RED BLOOD COUNT 4.96 x10^6/uL (3.50-5.40); RED CELL DISTRIBUTION WIDTH 12.9 % (11.5-14.5); WHITE BLOOD COUNT 16.5 x10^3/uL (4.0-11.0)
[2018-04-11] MEDS ORDERED: IV NORMAL SALINE 1000ML BAG 1,000 ML IV SCH (01:30)
[2018-04-11 01:36] LABS: CALCIUM 9.2 mg/dL (8.5-10.1); CREATININE 0.8 mg/dL (0.6-1.0); GFR 80.3; POTASSIUM 3.5 mmol/L (3.5-5.1)
[2018-04-11 01:42] LABS: ALBUMIN 3.3 g/dL (3.4-5.0); ALBUMIN/GLOBULIN RATIO 0.8 (1.0-1.7); TOTAL BILIRUBIN 0.8 mg/dL (0.2-1.0); TOTAL PROTEIN 7.7 g/dL (6.4-8.2)
[2018-04-11] MEDS ORDERED: ONDANSETRON PF 4 MG/2 ML VIAL. IV ONE (01:45)
[2018-04-11 02:37] LABS: BILIRUBIN,URINE SMALL (NEG); CLARITY,URINE CLOUDY; COLOR,URINE AMBER; NITRITE,URINE NEGATIVE (NEG); PH,URINE 5.5; PROTEIN,URINE 30 mg/dL (NEG-TRACE)
[2018-04-11 02:45] LABS: AMORPHOUS SEDIMENT,UR PRESENT /HPF; BACTERIA,URINE MODERATE /HPF (0-FEW); SQUAMOUS EPITHELIAL CELL,UR MANY /LPF
[2018-04-11 03:00] VITALS: BP 144/70
--- NOTE | 2018-04-11 03:02 | PHYS DOC ---
Past Medical History Past Medical History: Asthma, GERD, Hypertension, Other Additional Past Medical Histor: morbid obesity, PCOD, cervical cancer Past Surgical History: Tonsillectomy, Other Additional Past Surgical Histo: right eye surgery, ear tubes, laser removal of cervical cancer Alcohol Use: None Drug Use: None Adult General Chief Complaint Chief Complaint: NAUSEA/VOMITING/DIARRHA HPI HPI Patient is a 37-year-old female who presents with complaint of nausea with vomiting and diarrhea that started on Friday. Patient states that she just had an increase in her dosage of injectable diabetes medication and states that just a few hours after receiving the injection she developed nausea with vomiting and diarrhea. She states that she has had difficulty in keeping food and fluids down. She denies any abdominal pain with this. She denies any fever, chest pain or shortness of breath. Review of Systems Review of Systems Constitutional: Denies fever or chills [] Respiratory: Denies cough or shortness of breath [] Cardiovascular: No additional information not addressed in HPI [] GI: Denies abdominal pain. Complains of nausea with vomiting and diarrhea. [] Neurologic: Denies headache, focal weakness or sensory changes [] All other systems were reviewed and found to be within normal limits, except as documented in this note. Current Medications Current Medications Current Medications Medications (Trade) Dose Ordered Sig/Binu Start Time Stop Time Status Last Admin Dose Admin Diphenoxylate HCl/ Atropine (Lomotil) 2 tab 1X ONCE 04/11/18 03:15 04/11/18 03:16 Ondansetron HCl (Zofran) 4 mg 1X ONCE 04/11/18 01:45 04/11/18 01:46 DC 04/11/18 01:34 4 MG Sodium Chloride 1,000 ml @ 1,000 mls/hr Q1H 04/11/18 01:30 04/11/18 02:29 DC 04/11/18 01:33 1,000 MLS/HR Allergies Allergies Allergies Coded Allergies Type Severity Reaction Last Updated Verified metformin Adverse Reaction Unknown THREW UP,HEART BEAT WAS FAST 07/23/17 Yes Physical Exam Physical Exam Constitutional: Well developed, well nourished, no acute distress, non-toxic appearance. [] HENT: Normocephalic, atraumatic, bilateral external ears normal, oropharynx moist, no oral exudates, nose normal. [] Eyes: PERRLA, EOMI, conjunctiva normal, no discharge. [] Neck: Normal range of motion, no tenderness, supple, no stridor. [] Cardiovascular: Regular rate and rhythm[] Lungs & Thorax: Bilateral breath sounds clear to auscultation [] Abdomen: Bowel sounds normal, soft, no tenderness. [] Skin: Warm, dry, no erythema, no rash. [] Extremities: No tenderness, no cyanosis, no clubbing, ROM intact. [] Neurologic: Alert and oriented X 3, no focal deficits noted. [] Current Patient Data Vital Signs Vital Signs Date Time Temp Pulse Resp B/P (MAP) Pulse Ox O2 Delivery O2 Flow Rate FiO2 04/11/18 00:56 98.8 113 20 127/68 (87) 96 Room Air 98.8 Lab Values Laboratory Tests Test 04/11/18 01:20 04/11/18 01:33 04/11/18 02:31 04/11/18 03:00 White Blood Count 16.5 x10^3/uL (4.0-11.0) H Red Blood Count 4.96 x10^6/uL (3.50-5.40) Hemoglobin 15.2 g/dL (12.0-15.5) Hematocrit 45.0 % (36.0-47.0) Mean Corpuscular Volume 91 fL (79-100) Mean Corpuscular Hemoglobin 31 pg (25-35) Mean Corpuscular Hemoglobin Concent 34 g/dL (31-37) Red Cell Distribution Width 12.9 % (11.5-14.5) Platelet Count 370 x10^3/uL (140-400) Neutrophils (%) (Auto) 71 % (31-73) Lymphocytes (%) (Auto) 19 % (24-48) L Monocytes (%) (Auto) 9 % (0-9) Eosinophils (%) (Auto) 1 % (0-3) Basophils (%) (Auto) 0 % (0-3) Neutrophils # (Auto) 11.7 x10^3uL (1.8-7.7) H Lymphocytes # (Auto) 3.1 x10^3/uL (1.0-4.8) Monocytes # (Auto) 1.4 x10^3/uL (0.0-1.1) H Eosinophils # (Auto) 0.2 x10^3/uL (0.0-0.7) Basophils # (Auto) 0.1 x10^3/uL (0.0-0.2) Sodium Level 139 mmol/L (136-145) Potassium Level 3.5 mmol/L (3.5-5.1) Chloride Level 102 mmol/L (98-107) Carbon Dioxide Level 23 mmol/L (21-32) Anion Gap 14 (6-14) Blood Urea Nitrogen 13 mg/dL (7-20) Creatinine 0.8 mg/dL (0.6-1.0) Estimated GFR (Cockcroft-Gault) 80.3 BUN/Creatinine Ratio 16 (6-20) Glucose Level 173 mg/dL (70-99) H Calcium Level 9.2 mg/dL (8.5-10.1) Total Bilirubin 0.8 mg/dL (0.2-1.0) Aspartate Amino Transferase (AST) 25 U/L (15-37) Alanine Aminotransferase (ALT) 37 U/L (14-59) Alkaline Phosphatase 106 U/L (46-116) Total Protein 7.7 g/dL (6.4-8.2) Albumin 3.3 g/dL (3.4-5.0) L Albumin/Globulin Ratio 0.8 (1.0-1.7) L Lipase 120 U/L (73-393) POC Urine HCG, Qualitative Hcg negative (Negative) Hcg negative (Negative) Urine Collection Type Unknown Urine Color [place] Urine Clarity Cloudy Urine pH 5.5 Urine Specific [place] >=1.030 Urine Protein 30 mg/dL (NEG-TRACE) Urine Glucose (UA) Negative mg/dL (NEG) Urine Ketones (Stick) Trace mg/dL (NEG) Urine Blood Large (NEG) Urine Nitrite Negative (NEG) Urine Bilirubin Small (NEG) Urine Urobilinogen Dipstick 1.0 mg/dL (0.2 mg/dL) Urine Leukocyte Esterase Trace (NEG) Urine RBC 11-20 /HPF (0-2) Urine WBC 1-4 /HPF (0-4) Urine Squamous Epithelial Cells Many /LPF Urine Calcium Phosphate Crystals /HPF Urine Amorphous Sediment Present /HPF Urine Bacteria Moderate /HPF (0-FEW) Urine Mucus Marked /LPF Laboratory Tests 04/11/18 01:20 Laboratory Tests 04/11/18 01:20 EKG EKG [] Radiology/Procedures Radiology/Procedures [] Course & Med Decision Making Course & Med Decision Making Pertinent Labs and Imaging studies reviewed. (See chart for details) [] Dragon Disclaimer Dragon Disclaimer This electronic medical record was generated, in whole or in part, using a voice recognition dictation system. Departure Departure Impression: Primary Impression: Vomiting and diarrhea Disposition: HOME, SELF-CARE Condition: STABLE Referrals: PATRIA HUNT MD (PCP) Patient Instructions: Diarrhea, Nausea and Vomiting Scripts Diphenoxylate Hcl/Atropine (LOMOTIL TABLET) 1 Each Tablet 1 TAB PO TID PRN for DIARRHEA, #15 TAB Prov: GEENA MEADE Jr. DO 04/11/18 Ondansetron Hcl (ZOFRAN) 4 Mg Tablet 4 MG PO PRN TID PRN for NAUSEA, #12 nausea/vomiting Prov: GEENA MEADE Jr. DO 04/11/18 GEENA MEADE Jr. DO Apr 11, 2018 03:02
[2018-04-11] MEDS ORDERED: ONDA4TAB7 PO (03:11)
[2018-04-11] MEDS ORDERED: DIPH1TAB PO (03:13)
[2018-04-11] MEDS ORDERED: DIPHENOXYLATE/ATROPINE TABLET. PO ONE (03:15)
== END 2018-04-11 03:25 | disposition home or self-care (01) ==
LOC: ER 00:10
DX: R11.2 Nausea with vomiting, unspecified (principal); R19.7 Diarrhea, unspecified; I10 Essential (primary) hypertension; K21.9 Gastro-esophageal reflux disease without esophagitis; J45.909 Unspecified asthma, uncomplicated; E66.01 Morbid (severe) obesity due to excess calories; Z68.43 Body mass index [BMI] 50.0-59.9, adult; Z88.8 Allergy status to other drugs, medicaments and biological substances
CPT/HCPCS: 36415; 80053; 81001; 81025; 83690; 85025; 87086; 96361; 96374; 99283; J2405; J7030

== ENCOUNTER → 2018-04-22 | Outpatient (CLI) | payer OTHER ==
[2018-04-11 03:00] VITALS: BP 144/70
[~2018-04-22] MED LIST changes: +DIPH1TAB PO; +ONDA4TAB7 PO
--- NOTE | 2018-04-22 08:30 | RAD ---
Indication:ELEVATED LIVER ENZYMES TECHNIQUE: Grayscale, color Doppler and spectral waveform is of the abdomen obtained. COMPARISON:CT abdomen pelvis from 03/29/2018 FINDINGS: Pancreas, IVC and aorta not visualized due to overlying bowel gas. Liver is mildly enlarged measuring 19 cm in longest dimension with diffusely increased echogenicity and decreased through transmission. Main portal vein is patent. No gallstones, pericholecystic fluid or gallbladder wall thickening. CBD measures 4 mm in diameter and is within normal limits. Right kidney measures 12 cm in length without hydronephrosis. IMPRESSION: Limited exam due to overlying bowel gas. 1. Mild hepatomegaly with hepatic steatosis. 2. No cholelithiasis or sonographic evidence of acute cholecystitis. Electronically signed by: Jeffrey Kelsey DO (04/22/2018 8:27 AM) [id number]
== END | disposition home or self-care (01) ==
LOC: US 07:11
PROVIDERS: ATTEND Family Medicine
DX: K76.0 Fatty (change of) liver, not elsewhere classified (principal); R16.0 Hepatomegaly, not elsewhere classified; R94.5 Abnormal results of liver function studies
CPT/HCPCS: 76705

== ENCOUNTER 2019-04-19 21:37 | Emergency (ER) | payer MEDICAID ==
[~2019-04-19] VITALS: Ht 157.5 cm; Wt 131.0 kg
[~2019-04-19 21:37] MED LIST changes: +OMEP20CA16 PO
[2019-04-19 23:28] LABS: BILIRUBIN,URINE NEGATIVE (NEG); CLARITY,URINE CLEAR; COLOR,URINE YELLOW; NITRITE,URINE NEGATIVE (NEG); PH,URINE 5.5; PROTEIN,URINE NEGATIVE (NEG-TRACE); UROBILINOGEN,URINE 0.2 mg/dL (0.2 mg/dL)
--- NOTE | 2019-04-19 23:28 | PHYS DOC ---
Past Medical History Past Medical History: Asthma, Cancer, GERD, Hypertension, Other Additional Past Medical Histor: morbid obesity, PCOS, cervical cancer Past Surgical History: Tonsillectomy, Other Additional Past Surgical Histo: right eye surgery, ear tubes, laser removal of cervical cancer Smoking Status: Never Smoker Alcohol Use: None Drug Use: None Adult General Chief Complaint Chief Complaint: MULTIPLE COMPLAINTS HPI HPI Patient is a 38 year old female who presents with 2 days of generalized abdominal pain that patient describes as "somebody punching me on the inside". She rates pain a 10 out of 10. Patient states that every time she eats she has diarrhea. She also complains of urinary burning. Patient states she does get the chills occasionally. She states also her blood sugar was running high but now it is not. Review of Systems Review of Systems Constitutional: fever or chills [] GI: abdominal pain, nausea, vomiting, denies bloody stools. +diarrhea [] : dysuria or denies hematuria [] All other systems were reviewed and found to be within normal limits, except as documented in this note. Current Medications Current Medications Current Medications Medications (Trade) Dose Ordered Sig/Binu Start Time Stop Time Status Last Admin Dose Admin Fentanyl Citrate (Fentanyl 2ml Vial) 50 mcg 1X ONCE 04/19/19 23:45 04/19/19 23:46 DC 04/19/19 23:35 50 MCG Info (CONTRAST GIVEN -- Rx MONITORING) 1 each PRN DAILY PRN 04/20/19 00:30 04/22/19 00:29 Iohexol (Omnipaque 300 Mg/ml) 75 ml 1X ONCE 04/20/19 00:30 04/20/19 00:31 DC 04/20/19 00:31 75 ML Ondansetron HCl (Zofran) 4 mg 1X ONCE 04/19/19 23:30 04/19/19 23:31 DC 04/19/19 23:35 4 MG Sodium Chloride 1,000 ml @ 1,000 mls/hr Q1H 04/19/19 23:30 04/20/19 00:29 DC 04/19/19 23:34 1,000 MLS/HR Allergies Allergies Allergies Coded Allergies Type Severity Reaction Last Updated Verified No Known Drug Allergies 11/11/18 No Physical Exam Physical Exam Constitutional: Well developed, well nourished, no acute distress, non-toxic appearance. [] HENT: Normocephalic, atraumatic, bilateral external ears normal, oropharynx moist, no oral exudates, nose normal. [] Eyes: PERRLA, EOMI, conjunctiva normal, no discharge. [] Neck: Normal range of motion, no tenderness, supple, no stridor. [] Cardiovascular:Heart rate regular rhythm, no murmur [] Lungs & Thorax: Bilateral breath sounds clear to auscultation [] Abdomen: Bowel sounds normal, soft, generalized tenderness, no masses, no pulsatile masses. [] Skin: Warm, dry, no erythema, no rash. [] Back: No tenderness, no CVA tenderness. [] Extremities: No tenderness, no cyanosis, no clubbing, ROM intact, no edema. [] Neurologic: Alert and oriented X 3, normal motor function, normal sensory function, no focal deficits noted. [] Psychologic: Affect normal, judgement normal, mood normal. [] Current Patient Data Vital Signs Vital Signs Date Time Temp Pulse Resp B/P (MAP) Pulse Ox O2 Delivery O2 Flow Rate FiO2 04/19/19 23:35 16 97 Room Air 04/19/19 22:20 98.0 96 135/80 (98) 98.0 Lab Values Laboratory Tests Test 04/19/19 22:28 04/19/19 23:10 04/19/19 23:22 04/19/19 23:30 Glucose (Fingerstick) 264 mg/dL (70-99) H Urine Collection Type Unknown Urine Color Yellow Urine Clarity Clear Urine pH 5.5 Urine Specific Vesta >=1.030 Urine Protein Negative mg/dL (NEG-TRACE) Urine Glucose (UA) >=1000 mg/dL (NEG) Urine Ketones (Stick) Trace mg/dL (NEG) Urine Blood Moderate (NEG) Urine Nitrite Negative (NEG) Urine Bilirubin Negative (NEG) Urine Urobilinogen Dipstick 0.2 mg/dL (0.2 mg/dL) Urine Leukocyte Esterase Negative (NEG) Urine RBC 6-10 /HPF (0-2) Urine WBC 5-10 /HPF (0-4) Urine Squamous Epithelial Cells Mod /LPF Urine Bacteria Few /HPF (0-FEW) Urine Mucus Slight /LPF Urine Yeast Present /HPF Urine Opiates Screen Neg (NEG) Urine Methadone Screen Neg (NEG) Urine Barbiturates Neg (NEG) Urine Phencyclidine Screen Neg (NEG) Urine Amphetamine/Methamphetamine Neg (NEG) Urine Benzodiazepines Screen Neg (NEG) Urine Cocaine Screen Neg (NEG) Urine Cannabinoids Screen Neg (NEG) Urine Ethyl Alcohol Neg (NEG) POC Urine HCG, Qualitative Hcg negative (Negative) White Blood Count 14.4 x10^3/uL (4.0-11.0) H Red Blood Count 4.79 x10^6/uL (3.50-5.40) Hemoglobin 14.6 g/dL (12.0-15.5) Hematocrit 43.1 % (36.0-47.0) Mean Corpuscular Volume 90 fL (79-100) Mean Corpuscular Hemoglobin 31 pg (25-35) Mean Corpuscular Hemoglobin Concent 34 g/dL (31-37) Red Cell Distribution Width 13.1 % (11.5-14.5) Platelet Count 315 x10^3/uL (140-400) Neutrophils (%) (Auto) 66 % (31-73) Lymphocytes (%) (Auto) 27 % (24-48) Monocytes (%) (Auto) 6 % (0-9) Eosinophils (%) (Auto) 1 % (0-3) Basophils (%) (Auto) 1 % (0-3) Neutrophils # (Auto) 9.5 x10^3/uL (1.8-7.7) H Lymphocytes # (Auto) 3.8 x10^3/uL (1.0-4.8) Monocytes # (Auto) 0.8 x10^3/uL (0.0-1.1) Eosinophils # (Auto) 0.2 x10^3/uL (0.0-0.7) Basophils # (Auto) 0.1 x10^3/uL (0.0-0.2) Prothrombin Time 12.1 SEC (11.7-14.0) Prothrombin Time INR 0.9 (0.8-1.1) Sodium Level 137 mmol/L (136-145) Potassium Level 4.2 mmol/L (3.5-5.1) Chloride Level 102 mmol/L (98-107) Carbon Dioxide Level 25 mmol/L (21-32) Anion Gap 10 (6-14) Blood Urea Nitrogen 12 mg/dL (7-20) Creatinine 1.0 mg/dL (0.6-1.0) Estimated GFR (Cockcroft-Gault) 61.7 BUN/Creatinine Ratio 12 (6-20) Glucose Level 251 mg/dL (70-99) H Calcium Level 8.6 mg/dL (8.5-10.1) Total Bilirubin 0.6 mg/dL (0.2-1.0) Aspartate Amino Transferase (AST) 28 U/L (15-37) Alanine Aminotransferase (ALT) 39 U/L (14-59) Alkaline Phosphatase 129 U/L (46-116) H Total Protein 7.7 g/dL (6.4-8.2) Albumin 3.4 g/dL (3.4-5.0) Albumin/Globulin Ratio 0.8 (1.0-1.7) L Lipase 110 U/L (73-393) Test 04/19/19 23:38 Influenza Type A Antigen Negative (NEGATIVE) Influenza Type B Antigen Negative (NEGATIVE) Laboratory Tests 04/19/19 23:30 Laboratory Tests 04/19/19 23:30 EKG EKG [] Radiology/Procedures Radiology/Procedures [] Impressions: [facility] [address] [place] [address] IMAGING REPORT Signed PATIENT: HILDA RG ACCOUNT: [id number] : 1980 LOCATION: ER AGE: 38 SEX: F EXAM STATUS: REG ER ORD. PHYSICIAN: VANDA GALEAS APRN REASON: pain, diarrhea PROCEDURE: CT ABD PELV W/ IV CONTRST ONLY CT ABD PELV W/ IV CONTRST ONLY History: Pain. Diarrhea. Technique: After the administration of intravenous contrast, CT imaging was performed of the abdomen and pelvis. Multiplanar images are reviewed. Exposure: One or more of the following individualized dose reduction techniques were utilized for this examination: 1. Automated exposure control 2. Adjustment of the mA and/or kV according to patient size 3. Use of iterative reconstruction technique. Comparison: November 11, 2018 Findings: Lower chest: No consolidation or pleural effusion. Abdomen and pelvis: Hepatic steatosis. The spleen, adrenal glands, pancreas and gallbladder are unremarkable. Left renal hypodensity measures 1.6 cm. Indeterminate by Hounsfield units. The lesion is better seen on the current study compared to prior. No hydronephrosis. No intrarenal calculi. Decompressed urinary bladder. Normal appendix. No evidence of bowel obstruction. No pathologic lymphadenopathy. No ascites. Pelvic contents are unremarkable. Bones: No pathologic osseous lesions. Impression: 1. No acute abdominal or pelvic pathology. 2. Hypodense left renal lesion, most likely complicated cyst. Renal ultrasound can confirm if clinically indicated. 3. Hepatic steatosis. Electronically signed by: Carlos Moffett DO (04/20/2019 12:47 AM) [id number] DICTATED and SIGNED BY: CARLOS MOFFETT DO DATE: 04/20/19 0047 Course & Med Decision Making Course & Med Decision Making Pertinent Labs and Imaging studies reviewed. (See chart for details) Abdomen is soft but has generalized tenderness. Alert and oriented. Speaks in full clear sentences. Skin pink warm and dry. Ambulatory with a steady gait. Lungs are clear in upper lobes but diminished in lower lobes. Patient is morbidly obese. Patient denies chest pain, shortness of air, fever, dizziness, headache, vision changes, focal weakness, numbness or tingling. She states she took one antidiarrhea pill yesterday and 2 today and the diarrhea does not stop. CT scan shows no acute findings. Influenza negative. Urinalysis is contaminated. I will go ahead and treat the patient for her urinary symptoms of Keflex. Patient can follow up with her primary care physician. [] Dragon Disclaimer Dragon Disclaimer This electronic medical record was generated, in whole or in part, using a voice recognition dictation system. Departure Departure Impression: Primary Impression: Hematuria Additional Impressions: Abdominal pain Diarrhea Disposition: HOME, SELF-CARE Condition: STABLE Referrals: PATRIA HUNT MD (PCP) FELTON HANEY MD Patient Instructions: Diarrhea, Diet for Diarrhea, Adult, Urinary Tract Infection Additional Instructions: Follow up with your primary care provider. Drink plenty of fluids. Take medication as prescribed with food. Scripts Ondansetron (ONDANSETRON ODT) 4 Mg Tab.rapdis 1 TAB PO PRN Q6-8HRS, #16 TAB Prov: VANDA GALEAS WIRE WEAVER 04/20/19 Cephalexin (KEFLEX) 500 Mg Capsule 1 CAP PO BID for 7 Days, #14 CAP 0 Refills Prov: VANDA GALEAS WIRE WEAVER 04/20/19 Problem Qualifiers Primary Impression: Hematuria Hematuria type: unspecified type Qualified Codes: R31.9 - Hematuria, unspecified Additional Impressions: Abdominal pain Abdominal location: generalized Qualified Codes: R10.84 - Generalized abdominal pain Diarrhea Diarrhea type: unspecified type Qualified Codes: R19.7 - Diarrhea, unspecified VANDA GALEAS WIRE WEAVER Apr 19, 2019 23:28
[2019-04-19] MEDS ORDERED: ONDANSETRON PF 4 MG/2 ML VIAL. IV ONE (23:30)
[2019-04-19] MEDS ORDERED: IV NORMAL SALINE 1000ML BAG 1,000 ML IV SCH (23:30)
[2019-04-19 23:34] LABS: BARBITURATES NEG (NEG); BENZODIAZEPINES NEG (NEG); CANNABINOIDS NEG (NEG); COCAINE NEG (NEG); METHADONE NEG (NEG); OPIATES NEG (NEG); PHENCYCLIDINE NEG (NEG)
[2019-04-19 23:35] LABS: SQUAMOUS EPITHELIAL CELL,UR MOD /LPF
[2019-04-19 23:36] LABS: BACTERIA,URINE FEW /HPF (0-FEW)
[2019-04-19 23:37] LABS: YEAST,URINE PRESENT /HPF
[2019-04-19 23:40] LABS: BASO # 0.1 x10^3/uL (0.0-0.2); BASO % 1 % (0-3); EOS # 0.2 x10^3/uL (0.0-0.7); EOS % 1 % (0-3); HEMATOCRIT 43.1 % (36.0-47.0); HEMOGLOBIN 14.6 g/dL (12.0-15.5); LYMPH # 3.8 x10^3/uL (1.0-4.8); LYMPH % 27 % (24-48); MEAN CORPUSCULAR HEMOGLOBIN 31 pg (25-35); MEAN CORPUSCULAR HGB CONC 34 g/dL (31-37); MEAN CORPUSCULAR VOLUME 90 fL (79-100); MONO # 0.8 x10^3/uL (0.0-1.1); MONO % 6 % (0-9); NEUT # 9.5 x10^3/uL (1.8-7.7); NEUT % 66 % (31-73); PLATELET COUNT 315 x10^3/uL (140-400); RED BLOOD COUNT 4.79 x10^6/uL (3.50-5.40); RED CELL DISTRIBUTION WIDTH 13.1 % (11.5-14.5); WHITE BLOOD COUNT 14.4 x10^3/uL (4.0-11.0)
[2019-04-19 23:42] LABS: AMPHETAMINE/METHAMPHETAMINE NEG (NEG)
[2019-04-19] MEDS ORDERED: fentaNYL PF VIAL 100 MCG/2 ML VIAL IVP ONE (23:45)
[2019-04-19 23:48] LABS: PROTHROMBIN TIME PATIENT 12.1 SEC (11.7-14.0)
[2019-04-19 23:59] LABS: CALCIUM 8.6 mg/dL (8.5-10.1); GFR 61.7; POTASSIUM 4.2 mmol/L (3.5-5.1)
[2019-04-20 00:03] LABS: ALBUMIN 3.4 g/dL (3.4-5.0); ALBUMIN/GLOBULIN RATIO 0.8 (1.0-1.7); TOTAL BILIRUBIN 0.6 mg/dL (0.2-1.0); TOTAL PROTEIN 7.7 g/dL (6.4-8.2)
[2019-04-20 00:10] LABS: INFLUENZA A PATIENT NEGATIVE (NEGATIVE); INFLUENZA B PATIENT NEGATIVE (NEGATIVE)
[2019-04-20] MEDS ORDERED: IOHEXOL 300 MG/ML 100ML VIAL. IV ONE (00:30)
[2019-04-20] MEDS ORDERED: CONTRAST GIVEN. MC PRN (00:30)
[2019-04-20 00:38] VITALS: BP 141/84
--- NOTE | 2019-04-20 00:50 | RAD ---
CT ABD PELV W/ IV CONTRST ONLY History: Pain. Diarrhea. Technique: After the administration of intravenous contrast, CT imaging was performed of the abdomen and pelvis. Multiplanar images are reviewed. Exposure: One or more of the following individualized dose reduction techniques were utilized for this examination: 1. Automated exposure control 2. Adjustment of the mA and/or kV according to patient size 3. Use of iterative reconstruction technique. Comparison: November 11, 2018 Findings: Lower chest: No consolidation or pleural effusion. Abdomen and pelvis: Hepatic steatosis. The spleen, adrenal glands, pancreas and gallbladder are unremarkable. Left renal hypodensity measures 1.6 cm. Indeterminate by Hounsfield units. The lesion is better seen on the current study compared to prior. No hydronephrosis. No intrarenal calculi. Decompressed urinary bladder. Normal appendix. No evidence of bowel obstruction. No pathologic lymphadenopathy. No ascites. Pelvic contents are unremarkable. Bones: No pathologic osseous lesions. Impression: 1. No acute abdominal or pelvic pathology. 2. Hypodense left renal lesion, most likely complicated cyst. Renal ultrasound can confirm if clinically indicated. 3. Hepatic steatosis. Electronically signed by: Carlos Moffett DO (04/20/2019 12:47 AM) [id number]
[2019-04-20] MEDS ORDERED: CEPH-264 PO (00:57)
[2019-04-20] MEDS ORDERED: ONDA4TAB12 PO (00:57)
[2019-04-20] MEDS ORDERED: DICYCLOMINE 20 MG/2 ML VIAL. IM ONE (01:30)
== END 2019-04-20 01:15 | disposition home or self-care (01) ==
LOC: ER 21:37
DX: R19.7 Diarrhea, unspecified (principal); R10.84 Generalized abdominal pain; R31.9 Hematuria, unspecified; J45.909 Unspecified asthma, uncomplicated; K21.9 Gastro-esophageal reflux disease without esophagitis; I10 Essential (primary) hypertension; E66.01 Morbid (severe) obesity due to excess calories; Z68.43 Body mass index [BMI] 50.0-59.9, adult; Z85.89 Personal history of malignant neoplasm of other organs and systems; Z90.89 Acquired absence of other organs; Z98.890 Other specified postprocedural states; Z79.899 Other long term (current) drug therapy
CPT/HCPCS: 36415; 74177; 80053; 80307; 81001; 81025; 82962; 83690; 85025; 85610; 87086; 87804; 96361; 96372; 96374; 96375; 99285; J0500; J2405; J3010; J7030; Q9967

== ENCOUNTER 2019-09-05 14:24 | Emergency (ER) | payer MEDICAID ==
[~2019-09-05] VITALS: Ht 157.5 cm; Wt 134.0 kg
[~2019-09-05 14:24] MED LIST changes: +CEPH-264 PO; +ONDA4TAB12 PO
[2019-09-05] MEDS ORDERED: predniSONE 10 MG TABLET PO ONE (15:00)
[2019-09-05] MEDS ORDERED: ALBUTEROL SULFATE 2.5 MG/3 ML NEBU. NEB ONE (15:00)
[2019-09-05 15:16] LABS: BASO # 0.1 x10^3/uL (0.0-0.2); BASO % 1 % (0-3); EOS # 0.2 x10^3/uL (0.0-0.7); EOS % 2 % (0-3); HEMOGLOBIN 14.4 g/dL (12.0-15.5); LYMPH # 3.7 x10^3/uL (1.0-4.8); LYMPH % 30 % (24-48); MEAN CORPUSCULAR HEMOGLOBIN 32 pg (25-35); MEAN CORPUSCULAR HGB CONC 35 g/dL (31-37); MEAN CORPUSCULAR VOLUME 90 fL (79-100); MONO # 0.7 x10^3/uL (0.0-1.1); MONO % 6 % (0-9); NEUT # 7.9 x10^3/uL (1.8-7.7); NEUT % 63 % (31-73); PLATELET COUNT 290 x10^3/uL (140-400); RED BLOOD COUNT 4.55 x10^6/uL (3.50-5.40); RED CELL DISTRIBUTION WIDTH 12.7 % (11.5-14.5); WHITE BLOOD COUNT 12.7 x10^3/uL (4.0-11.0)
--- NOTE | 2019-09-05 15:22 | PHYS DOC ---
Past Medical History Past Medical History: Asthma, Cancer, GERD, High Cholesterol, Hypertension, Other Additional Past Medical Histor: morbid obesity, PCOS, cervical cancer Past Surgical History: Tonsillectomy, Other Additional Past Surgical Histo: right eye surgery, ear tubes, laser removal of cervical cancer Smoking Status: Never Smoker Alcohol Use: None Drug Use: None General Adult EDM: Chief Complaint: COUGH HPI: HPI: Patient is a 38 year old female who presents with last night began to have a dry cough, sinus throbbing pressure headache, nausea and shortness of breath. She states she does have asthma and her inhalers are working. She states that every day she does take an allergy pill in the morning but she cannot remember what it is called. She states she vomited once this morning. She states she no longer has nausea. Patient denies fever, abdominal pain, diarrhea, constipation, chest pain, chest tightness, chest pressure, dizziness, vision changes, numbness or tingling, focal weakness. Patient rates her overall pain a 6 out of 10. [] Review of Systems: Review of Systems: Constitutional: Denies fever or chills. [] Eyes: Denies change in visual acuity. [] HENT: nasal congestion or sore throat. [] Respiratory: cough or shortness of breath. [] Cardiovascular: Denies chest pain or edema. [] GI: Denies abdominal pain. + nausea, +vomiting x1, bloody stools or diarrhea. [] : Denies dysuria. [] Musculoskeletal: Denies back pain or joint pain. [] Integument: Denies rash. [] Neurologic: Sinus headache, denies focal weakness or sensory changes. [] Endocrine: Denies polyuria or polydipsia. [] Lymphatic: Denies swollen glands. [] Psychiatric: Denies depression or anxiety. [] Heart Score: Risk Factors: Risk Factors: DM, Current or recent (<one month) smoker, HTN, HLP, family history of CAD, obesity. Risk Scores: Score 0 - 3: 2.5% MACE over next 6 weeks - Discharge Home Score 4 - 6: 20.3% MACE over next 6 weeks - Admit for Clinical Observation Score 7 - 10: 72.7% MACE over next 6 weeks - Early Invasive Strategies Current Medications: Current Medications Medications (Trade) Dose Ordered Sig/Binu Start Time Stop Time Status Last Admin Dose Admin Albuterol Sulfate (Ventolin Neb Soln) 2.5 mg 1X ONCE 09/05/19 15:00 09/05/19 15:01 DC Prednisone (Prednisone) 50 mg 1X ONCE 09/05/19 15:00 09/05/19 15:01 DC 09/05/19 15:02 50 MG Allergies: Allergies: Allergies Coded Allergies Type Severity Reaction Last Updated Verified No Known Drug Allergies 11/11/18 No Physical Exam: PE: Constitutional: Well developed, well nourished, no acute distress, non-toxic appearance. [] HENT: Normocephalic, atraumatic, bilateral external ears normal, oropharynx moist, no oral exudates, nose normal. [] Eyes: PERRLA, EOMI, conjunctiva normal, no discharge. [] Neck: Normal range of motion, no tenderness, supple, no stridor. [] Cardiovascular:Heart rate regular rhythm, no murmur [] Lungs & Thorax: Bilateral breath sounds diminished and tight to auscultation [] Abdomen: Bowel sounds normal, soft, no tenderness, no masses, no pulsatile masses. [] Skin: Warm, dry, no erythema, no rash. [] Back: No tenderness, no CVA tenderness. [] Extremities: No tenderness, no cyanosis, no clubbing, ROM intact, no edema. [] Neurologic: Alert and oriented X 3, normal motor function, normal sensory function, no focal deficits noted. [] Psychologic: Affect normal, judgement normal, mood normal. [] Current Patient Data: Vital Signs: Vital Signs Date Time Temp Pulse Resp B/P (MAP) Pulse Ox O2 Delivery O2 Flow Rate FiO2 09/05/19 14:25 98.1 82 22 142/74 (96) 100 Room Air 98.1 EKG: EKG: [] Radiology/Procedures: Radiology/Procedures: [] Impression: [facility] [address] [place], [place] [id number] IMAGING REPORT Signed PATIENT: HILDA RG ACCOUNT: [id number] : 1980 LOCATION: ER AGE: 38 SEX: F EXAM STATUS: REG ER ORD. PHYSICIAN: VANDA GALEAS APRN REASON: COUGH, SOA PROCEDURE: PORTABLE CHEST 1V PORTABLE CHEST 1V 09/05/2019 2:54 PM INDICATION: Cough, shortness of air COMPARISON: 11/11/2018 TECHNIQUE: Portable frontal view of the chest is provided. FINDINGS: The cardiomediastinal silhouette is within normal limits. Lungs are clear. There are no significant pleural effusions. There is no pulmonary vascular congestion. No pneumothorax. No suspicious osseous abnormality. IMPRESSION: There is no acute cardiopulmonary process. Electronically signed by: Yessy Granados MD (09/05/2019 3:28 PM) [facility] DICTATED and SIGNED BY: YESSY GRANADOS MD DATE: 09/05/19 1528 Course & Med Decision Making: Course & Med Decision Making Pertinent Labs and Imaging studies reviewed. (See chart for details) Alert and oriented. Speaks in full clear sentences. Lungs are diminished throughout and tight. Skin pink warm and dry. Abdomen soft and nontender. Ambulatory with a steady gait. Frontal sinus tenderness. PERRLA. Throat is pink without exudates or swelling. Bilateral tympanic's white. Patients lungs sound clearer after breathing treatment. She states she feels a little better. She remains stable and in no distress. Vital signs remained stable. Patient will follow up with her primary care provider. She does not have a nebulizer machine at home and I told her to call her primary care provide r to ask for a prescription for 1 of those machines. Patient will be sent home on azithromycin, pro-air and dexamethasone. COVID-19 CRITERIA: The patient was evaluated during the global COVID-19 pandemic, and that diagnosis was suspected/considered upon their initial presentation. Their evaluation, treatment and testing was consistent with current guidelines for patients who present with complaints or symptoms that may be related to COVID-19. [] Dragon Disclaimer: Dragon Disclaimer: This electronic medical record was generated, in whole or in part, using a voice recognition dictation system. COVID-19 Patient Risks: Age 65 or older: No Sign of co-morbidity: Yes Exp to person + for COVID: No Exp to PUI: No Travel from affected area: No Lower respiratory symptoms: Yes Fever: No Other: No PPE Use: Full PPE with N95 mask or PAPR: Yes Departure Departure Impression: Primary Impression: Person under investigation for COVID-19 Additional Impression: Asthma exacerbation Qualified Codes: J45.21 - Mild intermittent asthma with (acute) exacerbation Disposition: 01 HOME, SELF-CARE Condition: STABLE Referrals: PATRIA HUNT MD (PCP) Patient Instructions: Asthma, Adult Additional Instructions: You have been tested for or diagnosed with COVID-19. It is an infection caused by a new type of coronavirus. COVID-19 will cause cold-like or mild flu symptoms in most. It can cause more severe symptoms like problems breathing in some. There is no treatment for COVID-19. The body will clear the infection over time. Self-care will help to ease discomfort. Steps to Take: Self-Care Rest as needed. Healthy habits may help you feel better. Steps include: Choose healthy foods including fruits and vegetables. Drink water throughout the day. Get plenty of sleep each night. If you smoke, try to quit. It may ease breathing. Avoid alcohol. Keep Others Healthy The virus can spread to others. Droplets are released every time you sneeze or cough. The droplets can get into the mouth, nose, or eyes of people near you and lead to infection. To lower the chances of spreading COVID-19 to others: Stay at home until your doctor has said it is safe to leave. If you tested positive this will mean staying isolated until both of the following are true: At least 7 days have passed since the start of illness. You are free of fever for at least 72 hours without the use of medicine. During this time: - Avoid public areas, events, or transportation. Do not return to work or school until your doctor has said it is safe to do so. - Call ahead if you need to go to a medical center. Let them know you may have COVID-19. It will help them guide you where to go. They may also ask you to wear a facemask when you come to the office. - If you call for emergency medical services, let them know you may have COVID- 19. While at home: - Try to avoid close contact with others. Stay about 6 feet away. - If possible, spend most of your time in a separate room from others. - Use a face mask if you will be in close contact with others such as sharing a room or vehicle. - Have someone wipe down common surfaces in the home. Use household code number stamper every day on areas like doorknobs, counters, or sinks. - Cough or sneeze into a tissue. Throw the tissue away right after use. If a tissue is not available, cough or sneeze into your elbow. - Wash your hands often. Wash them after sneezing or coughing. Use soap and water and wash for at least 20 seconds. Alcohol based hand spool cleaner can be used if soap and water is not available. - Do not prepare food for others. Avoid sharing personal items like forks, spoons, or toothbrushes. - Avoid close contact with pets while you are sick. There is no evidence of the virus passing to pets. This is a safety step until more is known about this virus. Isolation can be frustrating. Social interaction can help. Keep in touch with friends and family through phone and tech options. You can still interact with others in your home, just keep a safe distance of about 6 feet. Follow-up: Your doctors office will check in with you to see if there are any changes in your health. You may be asked to keep track of symptoms to share with them. They will also let you know when you are clear to be in public again. Problems to Look Out For: Contact your doctor if your recovery is not going as you expect. Get emergency care if you have problems such as: - Trouble breathing - Nonstop chest pain or pressure - Changes in awareness, confusion, or problems waking - Lips or face have bluish color - Worsening of symptoms If you think you have an emergency, call for emergency medical services right away. As taken from [email or web address] [place] Health Scripts Albuterol Sulfate (PROAIR HFA INHALER) 8.5 Gm Hfa.aer.ad 1 PUFF INH PRN Q6HRS PRN for SHORTNESS OF BREATH, #1 INHALER 0 Refills Prov: VANDA GALEAS FRUIT AND VEGETABLE INSPECTOR 09/05/19 Methylprednisolone (MEDROL) 4 Mg Tab.ds.pk 1 PKG PO UD, #1 PKG Prov: VANDA GALEAS [employer] AND VEGETABLE INSPECTOR 09/05/19 Azithromycin (AZITHROMYCIN TABLET) 250 Mg Tablet 1 PKG PO UD for 5 Days, #6 TAB 0 Refills 2 the first day followed by 1 for days 2-5 Prov: VANDA GALEAS [employer] AND VEGETABLE INSPECTOR 09/05/19 Justicifation of Admission Dx: Justifications for Admission: Justification of Admission Dx: N/A VANDA GALEAS FRUIT AND VEGETABLE INSPECTOR Sep 05, 2019 15:22
[2019-09-05 15:23] LABS: BILIRUBIN,URINE NEGATIVE (NEG); CLARITY,URINE TURBID; COLOR,URINE YELLOW; NITRITE,URINE NEGATIVE (NEG); PH,URINE 7.5 (<5.0-8.0); PROTEIN,URINE NEGATIVE (NEG-TRACE)
[2019-09-05 15:24] LABS: CALCIUM 9.3 mg/dL (8.5-10.1); CREATININE 0.9 mg/dL (0.6-1.0); GFR 69.7
[2019-09-05 15:29] LABS: ALBUMIN 3.1 g/dL (3.4-5.0); ALBUMIN/GLOBULIN RATIO 0.7 (1.0-1.7); TOTAL BILIRUBIN 0.8 mg/dL (0.2-1.0); TOTAL PROTEIN 7.3 g/dL (6.4-8.2)
--- NOTE | 2019-09-05 15:31 | RAD ---
PORTABLE CHEST 1V 09/05/2019 2:54 PM INDICATION: Cough, shortness of air COMPARISON: 11/11/2018 TECHNIQUE: Portable frontal view of the chest is provided. FINDINGS: The cardiomediastinal silhouette is within normal limits. Lungs are clear. There are no significant pleural effusions. There is no pulmonary vascular congestion. No pneumothorax. No suspicious osseous abnormality. IMPRESSION: There is no acute cardiopulmonary process. Electronically signed by: Erin Neri MD (09/05/2019 3:28 PM) [facility]
[2019-09-05 15:33] LABS: WBC,URINE OCC /HPF (0-4)
[2019-09-05 15:34] LABS: BACTERIA,URINE MODERATE /HPF (0-FEW); SQUAMOUS EPITHELIAL CELL,UR MOD /LPF
[2019-09-05] MEDS ORDERED: HYDROcodone/APAP 5/325MG 1 TAB TABLET PO ONE (15:45)
[2019-09-05] MEDS ORDERED: AZIT250T6 PO (15:46)
[2019-09-05] MEDS ORDERED: METH4TAB2 PO (15:46)
[2019-09-05] MEDS ORDERED: ALBU2.5V8 INH (15:54)
[2019-09-05 16:31] VITALS: BP 131/83
== END 2019-09-05 17:00 | disposition home or self-care (01) ==
LOC: ER 14:24
DX: Z20.828 Contact with and (suspected) exposure to other viral communicable diseases (principal); J45.21 Mild intermittent asthma with (acute) exacerbation; K21.9 Gastro-esophageal reflux disease without esophagitis; E78.00 Pure hypercholesterolemia, unspecified; I10 Essential (primary) hypertension; E66.01 Morbid (severe) obesity due to excess calories; Z68.43 Body mass index [BMI] 50.0-59.9, adult
CPT/HCPCS: 36415; 71045; 80053; 81001; 81025; 85025; 87086; 94640; 99285; J7512; U0003; J7613

== ENCOUNTER 2019-12-04 18:44 | Emergency (ER) | payer MEDICAID ==
[~2019-12-04] VITALS: Ht 157.5 cm; Wt 159.1 kg
[~2019-12-04 18:44] MED LIST changes: +ALBU2.5V8 INH; +AZIT250T6 PO; +METH4TAB2 PO
--- NOTE | 2019-12-04 21:53 | RAD ---
Exam: Chest one view INDICATION: Short of air, Covid positive TECHNIQUE: Frontal view of the chest Comparisons: 09/05/2019 FINDINGS: The cardiomediastinal silhouette and pulmonary vessels are within normal limits. The lung and pleural spaces are clear. IMPRESSION: No acute cardiopulmonary process. Electronically signed by: Tana Schroeder MD (12/04/2019 9:50 PM) [id number]
[2019-12-04] MEDS ORDERED: AZIT250T6 PO (22:57)
[2019-12-04] MEDS ORDERED: METH4TAB2 PO (22:57)
--- NOTE | 2019-12-04 22:57 | ED.ADGEN ---
Past Medical History Past Medical History: Asthma, Cancer, GERD, High Cholesterol, Hypertension, Other Additional Past Medical Histor: morbid obesity, PCOS, cervical cancer Past Surgical History: Tonsillectomy, Other Additional Past Surgical Histo: right eye surgery, ear tubes, laser removal of cervical cancer Smoking Status: Never Smoker Alcohol Use: None Drug Use: None General Adult EDM: Chief Complaint: COUGH HPI: HPI: Patient is a 38 year old female, accompanied by her spouse, who presents to the emergency department with complaints of increased shortness of breath with exertion and cough she reports that she tested positive for COVID-19 on November 302019 patient has a history of asthma and has been taking her albuterol inhaler that has been helping with the shortness of breath. She denies any increased shortness of breath at this time. She denies any nausea, vomiting, diarrhea, abdominal pain, chest pain, headache, fever, body aches, fatigue. Patient reports that her is also positive for COVID-19 and has developed shortness of breath today so she thought she could also be evaluated. She currently denies any pain. Review of Systems: Review of Systems: Constitutional: Denies fever or chills. [] HENT: Denies nasal congestion or sore throat. [] Respiratory: See history of present illness Cardiovascular: Denies chest pain or edema. [] GI: Denies abdominal pain, nausea, vomiting, or diarrhea. [] : Denies dysuria. [] Musculoskeletal: Denies back pain or joint pain. [] Integument: Denies rash. [] Neurologic: Denies headache, focal weakness or sensory changes. [] Psychiatric: Denies depression or anxiety. [] Allergies: Allergies: Allergies Coded Allergies Type Severity Reaction Last Updated Verified No Known Drug Allergies 11/11/18 No Physical Exam: PE: Constitutional: Well developed, well nourished, no acute distress, non-toxic appearance, obese [] HENT: Normocephalic, atraumatic, bilateral external ears normal, nose normal. [] Eyes: PERRLA, EOMI, conjunctiva normal, no discharge. [] Neck: Normal range of motion, no stridor. [] Cardiovascular:Heart rate regular rhythm Lungs & Thorax: Respirations even and unlabored, no retractions, no respiratory distress, lungs CTA Skin: Warm, dry, no erythema, no rash. [] Extremities: No cyanosis, ROM intact, no edema. [] Neurologic: Alert and oriented X 3, no focal deficits noted. [] Psychologic: Affect normal, judgement normal, mood normal. [] Current Patient Data: Vital Signs: Vital Signs Date Time Temp Pulse Resp B/P (MAP) Pulse Ox O2 Delivery O2 Flow Rate FiO2 12/04/19 23:08 140/86 (104) 12/04/19 22:52 97.4 87 25 98 Room Air 97.4 EKG: EKG: [] Heart Score: Risk Factors: Risk Factors: DM, Current or recent (<one month) smoker, HTN, HLP, family history of CAD, obesity. Risk Scores: Score 0 - 3: 2.5% MACE over next 6 weeks - Discharge Home Score 4 - 6: 20.3% MACE over next 6 weeks - Admit for Clinical Observation Score 7 - 10: 72.7% MACE over next 6 weeks - Early Invasive Strategies Radiology/Procedures: Radiology/Procedures: PROCEDURE: CHEST AP ONLY Exam: Chest one view INDICATION: Short of air, Covid positive TECHNIQUE: Frontal view of the chest Comparisons: 09/05/2019 FINDINGS: The cardiomediastinal silhouette and pulmonary vessels are within normal limits. The lung and pleural spaces are clear. IMPRESSION: No acute cardiopulmonary process. [] Course & Med Decision Making: Course & Med Decision Making Pertinent Labs and Imaging studies reviewed. (See chart for details) 38-year-old female presents emergency department with request for reevaluation after recent COVID-19 diagnosis. Patient's chest x-ray was unremarkable. Due to patient's increased report albuterol MDI use will prescribe Zithromax and a Medrol Dosepak. Patient reported that she had multiple inhalers at home and denied a need for refill of this medication. I encouraged the patient to return to the emergency room if her symptoms worsen or her breathing became labored. The patient's vital signs are stable throughout her visit. Patient verbalized an understanding of home care, medications, follow-up, and return to ED instructions and was in agreement with the plan of care. COVID-19 CRITERIA: The patient was evaluated during the global COVID-19 pandemic, and that diagnosis was suspected/considered upon their initial presentation. Their evaluation, treatment and testing was consistent with current guidelines for patients who present with complaints or symptoms that may be related to COVID-19. [] Dragon Disclaimer: Dragon Disclaimer: This electronic medical record was generated, in whole or in part, using a voice recognition dictation system. Departure Departure Impression: Primary Impression: URI (upper respiratory infection) Additional Impression: COVID-19 Disposition: 01 DC HOME SELF CARE/HOMELESS Condition: STABLE Referrals: PATRIA HUNT MD (PCP) Patient Instructions: Upper Respiratory Infection, Adult, [id number] Additional Instructions: Fill the prescriptions and use them as directed. Return to the emergency room if your shortness of breath increases or symptoms worsen. You have been tested for or diagnosed with COVID-19. It is an infection caused by a new type of coronavirus. COVID-19 will cause cold-like or mild flu symptoms in most. It can cause more severe symptoms like problems breathing in some. There is no treatment for COVID-19. The body will clear the infection over time. Self-care will help to ease discomfort. Steps to Take: Self-Care Rest as needed. Healthy habits may help you feel better. Steps include: Choose healthy foods including fruits and vegetables. Drink water throughout the day. Get plenty of sleep each night. If you smoke, try to quit. It may ease breathing. Avoid alcohol. Keep Others Healthy The virus can spread to others. Droplets are released every time you sneeze or cough. The droplets can get into the mouth, nose, or eyes of people near you and lead to infection. To lower the chances of spreading COVID-19 to others: Stay at home until your doctor has said it is safe to leave. If you tested positive this will mean staying isolated until both of the following are true: At least 7 days have passed since the start of illness. You are free of fever for at least 72 hours without the use of medicine. During this time: - Avoid public areas, events, or transportation. Do not return to work or school until your doctor has said it is safe to do so. - Call ahead if you need to go to a medical center. Let them know you may have COVID-19. It will help them guide you where to go. They may also ask you to wear a facemask when you come to the office. - If you call for emergency medical services, let them know you may have COVID- 19. While at home: - Try to avoid close contact with others. Stay about 6 feet away. - If possible, spend most of your time in a separate room from others. - Use a face mask if you will be in close contact with others such as sharing a room or vehicle. - Have someone wipe down common surfaces in the home. Use household broadcast meteorologist every day on areas like doorknobs, counters, or sinks. - Cough or sneeze into a tissue. Throw the tissue away right after use. If a tissue is not available, cough or sneeze into your elbow. - Wash your hands often. Wash them after sneezing or coughing. Use soap and water and wash for at least 20 seconds. Alcohol based hand latrine cleaner can be used if soap and water is not available. - Do not prepare food for others. Avoid sharing personal items like forks, spoons, or toothbrushes. - Avoid close contact with pets while you are sick. There is no evidence of the virus passing to pets. This is a safety step until more is known about this virus. Isolation can be frustrating. Social interaction can help. Keep in touch with friends and family through phone and tech options. You can still interact with others in your home, just keep a safe distance of about 6 feet. Follow-up: Your doctors office will check in with you to see if there are any changes in your health. You may be asked to keep track of symptoms to share with them. They will also let you know when you are clear to be in public again. Problems to Look Out For: Contact your doctor if your recovery is not going as you expect. Get emergency care if you have problems such as: - Trouble breathing - Nonstop chest pain or pressure - Changes in awareness, confusion, or problems waking - Lips or face have bluish color - Worsening of symptoms If you think you have an emergency, call for emergency medical services right aw ay. As taken from [facility] Methylprednisolone (MEDROL) 4 Mg Tab.ds.pk 1 PKG PO UD for 6 Days, #1 PKG 0 Refills Prov: LIZZETTE PERSAUD [employer] SERVICES PROJECT MANAGER 12/04/19 Azithromycin (AZITHROMYCIN TABLET) 250 Mg Tablet 1 PKG PO UD for 5 Days, #6 TAB 0 Refills 2 the first day followed by 1 for days 2-5 Prov: LIZZETTE PERSAUD APRN 12/04/19 COVID-19 Assessment: COVID-19 Patient Risks: Age 65 or older: No Sign of co-morbidity: Yes Exp to person + for COVID: Yes Exp to PUI: Yes Travel from affected area: No Lower respiratory symptoms: Yes Fever: No Comments: Positive COVID-19 results 12/01/2019 PPE Use: Full PPE with N95 mask or PAPR: Yes Problem Qualifiers Primary Impression: URI (upper respiratory infection) URI type: unspecified URI Qualified Codes: J06.9 - Acute upper respiratory infection, unspecified LIZZETTE PERSAUD [employer]ON[employer] SERVICES PROJECT MANAGER Dec 04, 2019 22:57
[2019-12-04 23:08] VITALS: BP 140/86
== END 2019-12-04 23:22 | disposition home or self-care (01) ==
LOC: ER 18:44
DX: J06.9 Acute upper respiratory infection, unspecified (principal); U07.1 COVID-19; J45.909 Unspecified asthma, uncomplicated; K21.9 Gastro-esophageal reflux disease without esophagitis; E78.00 Pure hypercholesterolemia, unspecified; I10 Essential (primary) hypertension; E66.01 Morbid (severe) obesity due to excess calories; Z68.44 Body mass index [BMI] 60.0-69.9, adult
CPT/HCPCS: 71045; 99283

== ENCOUNTER → 2020-09-05 | Outpatient (CLI) | payer MEDICAID ==
--- NOTE | 2020-09-06 12:24 | RAD ---
DATE: 09/05/2020 EXAM: DIGITAL SCREEN BILAT W/CAD HISTORY: Screening. Baseline exam COMPARISON: None. Baseline exam. This study was interpreted with the benefit of Computerized Aided Detection (CAD). Breast Density: SCATTERED The breast parenchyma shows scattered fibroglandular densities. Breast parenchyma level B. FINDINGS: No mass, suspicious calcification, or architectural distortion in either breast. IMPRESSION: No evidence of malignancy. BI-RADS CATEGORY: 1 NEGATIVE RECOMMENDED FOLLOW-UP: 12M 12 MONTH FOLLOW-UP PQRS compliance statement: Patient information was entered into a reminder system with a target due date for the next mammogram. Mammography is a sensitive method for finding small breast cancers, but it does not detect them all and is not a substitute for careful clinical examination. A negative mammogram does not negate a clinically suspicious finding and should not result in delay in biopsying a clinically suspicious abnormality. "Our facility is accredited by the [employer] Mammography Program."
== END ==
LOC: MAMMO 10:38
PROVIDERS: ATTEND Family Medicine
DX: Z12.31 Encounter for screening mammogram for malignant neoplasm of breast (principal)
CPT/HCPCS: 77067

== ENCOUNTER 2020-09-19 09:55 | Emergency (ER) | payer MEDICAID ==
[~2020-09-19] VITALS: Ht 157.5 cm; Wt 133.0 kg
[2020-09-19 11:52] LABS: BASO # 0.1 x10^3/uL (0.0-0.2); BASO % 1 % (0-3); EOS # 0.3 x10^3/uL (0.0-0.7); EOS % 3 % (0-3); HEMATOCRIT 41.7 % (36.0-47.0); HEMOGLOBIN 14.1 g/dL (12.0-15.5); LYMPH # 4.7 x10^3/uL (1.0-4.8); LYMPH % 41 % (24-48); MEAN CORPUSCULAR HEMOGLOBIN 31 pg (25-35); MEAN CORPUSCULAR HGB CONC 34 g/dL (31-37); MEAN CORPUSCULAR VOLUME 90 fL (79-100); MONO # 0.8 x10^3/uL (0.0-1.1); MONO % 7 % (0-9); NEUT # 5.5 x10^3/uL (1.8-7.7); NEUT % 48 % (31-73); PLATELET COUNT 254 x10^3/uL (140-400); RED BLOOD COUNT 4.62 x10^6/uL (3.50-5.40); RED CELL DISTRIBUTION WIDTH 12.9 % (11.5-14.5); WHITE BLOOD COUNT 11.5 x10^3/uL (4.0-11.0)
[2020-09-19 12:02] LABS: BILIRUBIN,URINE NEGATIVE (NEG); CLARITY,URINE CLEAR; COLOR,URINE YELLOW; NITRITE,URINE NEGATIVE (NEG); PROTEIN,URINE NEGATIVE (NEG-TRACE); UROBILINOGEN,URINE 0.2 mg/dL (0.2 mg/dL)
[2020-09-19 12:12] LABS: BACTERIA,URINE FEW /HPF (0-FEW); WBC,URINE RARE /HPF (0-4)
--- NOTE | 2020-09-19 12:13 | RAD ---
EXAM: Chest, single view. HISTORY: Dizziness. COMPARISON: 12/04/2019 FINDINGS: A frontal view of the chest is obtained. There is no infiltrate, pleural effusion or pneumo thorax. The heart is normal in size. IMPRESSION: No acute pulmonary finding. Electronically signed by: Lyndsay Johnson MD (09/19/2020 12:11 PM) [id number]
[2020-09-19] MEDS ORDERED: IV NORMAL SALINE 1000ML BAG 1,000 ML IV ONE (12:15)
[2020-09-19] MEDS ORDERED: ONDANSETRON PF 4 MG/2 ML VIAL. IVP ONE (12:15)
[2020-09-19 13:05] LABS: CALCIUM 9.1 mg/dL (8.5-10.1); CREATININE 0.7 mg/dL (0.6-1.0); GFR 92.7; POTASSIUM 4.8 mmol/L (3.5-5.1)
[2020-09-19 13:12] LABS: ALBUMIN 3.2 g/dL (3.4-5.0); ALBUMIN/GLOBULIN RATIO 0.9 (1.0-1.7); TOTAL BILIRUBIN 0.6 mg/dL (0.2-1.0); TOTAL PROTEIN 6.7 g/dL (6.4-8.2)
[2020-09-19] MEDS ORDERED: IOHEXOL 300 MG/ML 100ML VIAL. IV ONE (13:15)
[2020-09-19] MEDS ORDERED: fentaNYL PF VIAL 100 MCG/2 ML VIAL IVP ONE (13:15)
--- NOTE | 2020-09-19 13:22 | PHYS DOC ---
Past Medical History Past Medical History: Asthma, Cancer, Diabetes-Type II, GERD, High Cholesterol, Hypertension, Other Additional Past Medical Histor: morbid obesity, PCOS, cervical cancer (ROBI HARVEY APRN) Past Surgical History: Tonsillectomy, Other Additional Past Surgical Histo: right eye surgery, ear tubes, laser removal of cervical cancer (ROBI HARVEY APRN) Smoking Status: Never Smoker Alcohol Use: None Drug Use: None (ROBI HARVEY APRN) General Adult EDM: Chief Complaint: NAUSEA/VOMITING/DIARRHEA HPI: HPI: Patient is a 39 year old female presents to the emergency department comp laining of intermittent nausea vomiting and diarrhea for the past week. Patient reports she has had no nausea vomiting or diarrhea over the past few days however it returned yesterday in which she vomited 4 times and had 2 diarrhea episodes, denies seeing blood in her vomitus or in her stool. Patient reports she felt dizzy today, has had no vomiting or diarrhea but came to the emergency department for evaluation. Patient denies chest pain or shortness of breath, denies loss of taste or loss of smell, denies headaches, visual changes, rashes to her skin. Patient reports increased urinary frequency with burning on urination, denies vaginal discharge, denies rashes to her vaginal area, denies STI concerns. Patient denies urinary or bowel incontinence. Patient denies urinary retention. Patient denies any allergies to medications, states she takes Metformin and 2 other medications for type 2 diabetes, cholesterol medication, and ProAir for asthma. Patient reports having cervical cancer several years ago in which she had a uterine ablation, tubes in her ears when she was a child. Patient states she sees a Dr. Richards for ongoing cancer care however states she is having no cancer treatment at this time. Patient reports receiving the COVID-19 vaccination series, second dose in April, moderna brand. Patient denies any other physical complaints or physical concerns. (ROBI HARVEY APRN) Review of Systems: Review of Systems: 14 body systems of review of systems have been reviewed. See HPI for pertinent positives and negative responses, otherwise all other systems are negative, nonpertinent or noncontributory. Constitutional: Negative except as outlined in HPI above. Skin: Negative except as outlined in HPI above. Eyes: Negative except as outlined in HPI above. HENT: Negative except as outlined in HPI above. Respiratory: Negative except as outlined in HPI above. Cardiovascular: Negative except as outlined in HPI above. GI: Negative except as outlined in HPI above. : Negative except as outlined in HPI above. Musculoskeletal: Negative except as outlined in HPI above. Integument: Negative except as outlined in HPI above. Neurologic: Negative except as outlined in HPI above. Endocrine: Negative except as outlined in HPI above. Lymphatic: Negative except as outlined in HPI above. Psychiatric: Negative except as outlined in HPI above. (ROBI HARVEY APRN) Heart Score: C/O Chest Pain: No Risk Factors: Risk Factors: DM, Current or recent (<one month) smoker, HTN, HLP, family history of CAD, obesity. Risk Scores: Score 0 - 3: 2.5% MACE over next 6 weeks - Discharge Home Score 4 - 6: 20.3% MACE over next 6 weeks - Admit for Clinical Observation Score 7 - 10: 72.7% MACE over next 6 weeks - Early Invasive Strategies (ROBI HARVEY APRN) Current Medications: Current Medications Medications (Trade) Dose Ordered Sig/Binu Start Time Stop Time Status Last Admin Dose Admin Ondansetron HCl (Zofran) 4 mg 1X ONCE 09/19/20 12:15 09/19/20 12:16 DC 09/19/20 12:31 4 MG Sodium Chloride 1,000 ml @ 1,000 mls/hr 1X ONCE 09/19/20 12:15 09/19/20 13:14 09/19/20 12:30 1,000 MLS/HR (ROBI HARVEY APRN) Allergies: Allergies: Allergies Coded Allergies Type Severity Reaction Last Updated Verified No Known Drug Allergies 11/11/18 No (ROBI HARVEY APRN) Physical Exam: PE: Constitutional: Well developed, well nourished, no acute distress, non-toxic appearance. 39-year-old female in no apparent distress. HENT: Normocephalic, atraumatic. Oropharynx moist, normal phonation, no drooling, no trismus. Eyes: Conjunctiva normal, no discharge. Neck: Normal range of motion. No nuchal rigidity, no meningismus signs. Cardiovascular: Distal cap refill less than 2 seconds, no cyanosis appreciated. Lungs & Thorax: Patient is in no respiratory distress, no adventitious lung sounds appreciated. Abdomen: Bowel sounds normal, soft, no masses, no pulsatile masses. No bruising or skin discoloration of the abdomen. Abdomen round, patient obese, pain to palpation upper left and upper right quadrants. Negative Childs sign, negative psoas sign, negative rebound tenderness, negative McBurney's point tenderness. Skin: Warm, dry, no erythema, no rash. Back: No tenderness, no CVA tenderness. Extremities: No tenderness, no cyanosis, no clubbing, ROM intact, no edema. Neurologic: Alert and oriented X 3, normal motor function, normal sensory function, no focal deficits noted. Psychologic: Affect normal, judgement normal, mood normal. (ROBI HARVEY APRN) Current Patient Data: Labs: Laboratory Tests Test 09/19/20 11:40 09/19/20 11:42 09/19/20 11:50 09/19/20 11:55 White Blood Count 11.5 x10^3/uL Red Blood Count 4.62 x10^6/uL Hemoglobin 14.1 g/dL Hematocrit 41.7 % Mean Corpuscular Volume 90 fL Mean Corpuscular Hemoglobin 31 pg Mean Corpuscular Hemoglobin Concent 34 g/dL Red Cell Distribution Width 12.9 % Platelet Count 254 x10^3/uL Neutrophils (%) (Auto) 48 % Lymphocytes (%) (Auto) 41 % Monocytes (%) (Auto) 7 % Eosinophils (%) (Auto) 3 % Basophils (%) (Auto) 1 % Neutrophils # (Auto) 5.5 x10^3/uL Lymphocytes # (Auto) 4.7 x10^3/uL Monocytes # (Auto) 0.8 x10^3/uL Eosinophils # (Auto) 0.3 x10^3/uL Basophils # (Auto) 0.1 x10^3/uL Sodium Level 136 mmol/L Potassium Level 4.8 mmol/L Chloride Level 104 mmol/L Carbon Dioxide Level 21 mmol/L Anion Gap 11 Blood Urea Nitrogen 13 mg/dL Creatinine 0.7 mg/dL Estimated GFR (Cockcroft-Gault) 92.7 BUN/Creatinine Ratio 19 Glucose Level 316 mg/dL Calcium Level 9.1 mg/dL Total Bilirubin 0.6 mg/dL Aspartate Amino Transf (AST/SGOT) 37 U/L Alanine Aminotransferase (ALT/SGPT) 44 U/L Alkaline Phosphatase 126 U/L Creatine Kinase 112 U/L Creatine Kinase MB (Mass) 0.5 ng/mL Creatine Kinase MB Relative Index 0.4 % Troponin I Quantitative < 0.017 ng/mL Total Protein 6.7 g/dL Albumin 3.2 g/dL Albumin/Globulin Ratio 0.9 Lipase 128 U/L Acetone Level Neg SARS-CoV-2 Antigen (Rapid) Negative Urine Collection Type Unknown Urine Color Yellow Urine Clarity Clear Urine pH 5.0 Urine Specific [place] >=1.030 Urine Protein Negative mg/dL Urine Glucose (UA) >=1000 mg/dL Urine Ketones (Stick) Negative mg/dL Urine Blood Moderate Urine Nitrite Negative Urine Bilirubin Negative Urine Urobilinogen Dipstick 0.2 mg/dL Urine Leukocyte Esterase Negative Urine RBC 1-2 /HPF Urine WBC Rare /HPF Urine Squamous Epithelial Cells Many /LPF Urine Bacteria Few /HPF Bedside Urine HCG, Qualitative Hcg negative Test 09/19/20 11:57 Glucose (Fingerstick) 292 mg/dL Current Medications Medications (Trade) Dose Ordered Sig/Binu Route PRN Reason Start Time Stop Time Status Last Admin Dose Admin Sodium Chloride 1,000 ml @ 1,000 mls/hr 1X ONCE IV 09/19/20 12:15 09/19/20 13:14 DC 09/19/20 12:30 Ondansetron HCl (Zofran) 4 mg 1X ONCE IVP 09/19/20 12:15 09/19/20 12:16 DC 09/19/20 12:31 Fentanyl Citrate (Fentanyl 2ml Vial) 50 mcg 1X ONCE IVP 09/19/20 13:15 09/19/20 13:16 DC 09/19/20 13:34 Iohexol (Omnipaque 300 Mg/ml) 75 ml 1X ONCE IV 09/19/20 13:15 09/19/20 13:17 DC 09/19/20 13:27 Info (CONTRAST GIVEN -- Rx MONITORING) 1 each PRN DAILY PRN MC SEE COMMENTS 09/19/20 13:30 09/21/20 13:29 Laboratory Tests Test 09/19/20 11:40 09/19/20 11:50 09/19/20 11:55 09/19/20 11:57 White Blood Count 11.5 x10^3/uL (4.0-11.0) H Red Blood Count 4.62 x10^6/uL (3.50-5.40) Hemoglobin 14.1 g/dL (12.0-15.5) Hematocrit 41.7 % (36.0-47.0) Mean Corpuscular Volume 90 fL (79-100) Mean Corpuscular Hemoglobin 31 pg (25-35) Mean Corpuscular Hemoglobin Concent 34 g/dL (31-37) Red Cell Distribution Width 12.9 % (11.5-14.5) Platelet Count 254 x10^3/uL (140-400) Neutrophils (%) (Auto) 48 % (31-73) Lymphocytes (%) (Auto) 41 % (24-48) Monocytes (%) (Auto) 7 % (0-9) Eosinophils (%) (Auto) 3 % (0-3) Basophils (%) (Auto) 1 % (0-3) Neutrophils # (Auto) 5.5 x10^3/uL (1.8-7.7) Lymphocytes # (Auto) 4.7 x10^3/uL (1.0-4.8) Monocytes # (Auto) 0.8 x10^3/uL (0.0-1.1) Eosinophils # (Auto) 0.3 x10^3/uL (0.0-0.7) Basophils # (Auto) 0.1 x10^3/uL (0.0-0.2) Sodium Level 136 mmol/L (136-145) Potassium Level 4.8 mmol/L (3.5-5.1) Chloride Level 104 mmol/L (98-107) Carbon Dioxide Level 21 mmol/L (21-32) Anion Gap 11 (6-14) Blood Urea Nitrogen 13 mg/dL (7-20) Creatinine 0.7 mg/dL (0.6-1.0) Estimated GFR (Cockcroft-Gault) 92.7 BUN/Creatinine Ratio 19 (6-20) Glucose Level 316 mg/dL (70-99) H Calcium Level 9.1 mg/dL (8.5-10.1) Total Bilirubin Pending Aspartate Amino Transferase (AST) Pending Alanine Aminotransferase (ALT) Pending Alkaline Phosphatase Pending Creatine Kinase 112 U/L (26-192) Creatine Kinase MB (Mass) 0.5 ng/mL (0.0-3.6) Creatine Kinase MB Relative Index 0.4 % (0-4) Troponin I Quantitative < 0.017 ng/mL (0.000-0.055) Total Protein Pending Albumin Pending Albumin/Globulin Ratio Pending Lipase 128 U/L (73-393) Acetone Level Neg (NEG) Urine Collection Type Unknown Urine Color Yellow Urine Clarity Clear Urine pH 5.0 (<5.0-8.0) Urine Specific [place] >=1.030 (1.000-1.030) Urine Protein Negative mg/dL (NEG-TRACE) Urine Glucose (UA) >=1000 mg/dL (NEG) Urine Ketones (Stick) Negative mg/dL (NEG) Urine Blood Moderate (NEG) Urine Nitrite Negative (NEG) Urine Bilirubin Negative (NEG) Urine Urobilinogen Dipstick 0.2 mg/dL (0.2 mg/dL) Urine Leukocyte Esterase Negative (NEG) Urine RBC 1-2 /HPF (0-2) Urine WBC Rare /HPF (0-4) Urine Squamous Epithelial Cells Many /LPF Urine Bacteria Few /HPF (0-FEW) POC Urine HCG, Qualitative Hcg negative (Negative) Glucose (Fingerstick) 292 mg/dL (70-99) H Laboratory Tests 09/19/20 11:40 Laboratory Tests 09/19/20 11:40 Vital Signs: Vital Signs Date Time Temp Pulse Resp B/P (MAP) Pulse Ox O2 Delivery O2 Flow Rate FiO2 09/19/20 12:55 60 22 115/65 (82) 95 Room Air 09/19/20 11:15 97.9 97.9 (ROBI HARVEY APRN) EKG: EKG: EKG performed at 1134 by ED nursing staff shows a normal sinus rhythm with a leftward axis heart rate 66 bpm, no ectopy appreciated, ND interval 0.168, QTc interval 0.429, no acute STEMI, no ACS, no acute ischemia appreciated, EKG interpreted by ED attending physician Dr. Perez. (ROBI HARVEY APRN) Radiology/Procedures: Radiology/Procedures: PATIENT: INDY RG: [id number]#: [id number] : 1980 LOCATION: ER AGE: 39 SEX: F EXAM STATUS: REG ER ORD. PHYSICIAN: ROBI HARVEY APRN REASON: dizzyness, pui PROCEDURE: CHEST AP ONLY EXAM: Chest, single view. HISTORY: Dizziness. COMPARISON: 12/04/2019 FINDINGS: A frontal view of the chest is obtained. There is no infiltrate, pleural effusion or pneumothorax. The heart is normal in size. IMPRESSION: No acute pulmonary finding. CT ABDOMEN+PELVIS W History: Upper left and right abdominal pain, hematuria, nausea, diarrhea, vomiting. Comparison: CT abdomen and pelvis 04/19/2019. Technique: CT of the abdomen and pelvis with intravenous contrast. Findings: The lung bases are clear. The heart is unremarkable. The liver, gallbladder, pancreas, spleen, and adrenal glands are unremarkable. 1.8 cm left renal cyst. No hydronephrosis or nephrolithiasis. No perinephric fat stranding. The stomach is decompressed. Small bowel is unremarkable without evidence for obstruction. Normal appendix. Colon is unremarkable without wall thickening or pericolonic inflammatory changes. No abdominal free air or free fluid. The uterus and adnexa are unremarkable. The bladder is within normal limits. Normal vasculature. No adenopathy. Osseous structures and soft tissues are unremarkable. Impression: 1. No acute findings in the abdomen and pelvis. 2. Previously described indeterminant hypodensity in the left kidney measures fluid attenuation on current exam consistent with benign cyst. ------ Exposure: One or more of the following individualized dose reduction techniques were utilized for this examination: 1. Automated exposure control 2. Adjustment of the mA and/or kV according to patient size 3. Use of iterative reconstruction technique. Electronically signed by: Sergio Jim MD (09/19/2020 1:48 PM) [id number] DICTATED and SIGNED BY: SERGIO JIM MD DATE: 09/19/20 [id number] (ROBI HARVEY APRN) Course & Med Decision Making: Course & Med Decision Making Pertinent Labs and Imaging studies reviewed. (See chart for details) 39-year-old female, vital signs reviewed, presents to the emergency department concerning intermittent nausea vomiting diarrhea for the past week. Patient's physical presentation and explanation of events concerning for urinary tract infection versus other abdominal process, the patient did not have CVA tenderness, kidney stone unlikely. Patient does complain of dizziness, has had the COVID-19 vaccination series, will order COVID-19 virus testing, cardio respiratory work-up, urinalysis assay, urine test, will consider additional CT imaging of abdomen pending test, urinalysis assay. Will give 1 L normal saline, 4 mg Zofran for nausea, fentanyl for pain. The patient's urine was not infected, however did show hematuria. Patient's lipase within normal limits, will order CT abdomen pelvis with IV contrast. CT abdomen pelvis unremarkable, chest x-ray unremarkable, CT did show abnorm ality of kidney which patient is aware of, hematuria most likely related to history of uncontrolled diabetes. Discussed with patient ED work-up findings, recommended strict follow-up with PCP to control diabetes. Patient reports she is pain-free from the medication she was given in the ED today. States her nausea has been resolved. Patient states she would like to go home now. Discussed with the patient all findings and diagnostic testing as well as the need to follow-up with their primary care provider for further evaluation and treatment or return to the ED if any new or worsening symptoms. Strict return precautions were also discussed at length, the patient voiced understanding and agreement with the discharge planning. The patient was nontoxic in appearance, in no apparent distress, and hemodynamically stable at the time of disposition. (ROBI HARVEY APRN) Course & Med Decision Making I have participated in the care of this patient and I have reviewed and agree with all pertinent clinical information above including history, exam, and recommendations. Hallie Perez DO (HALLIE PEREZ DO) [place] Disclaimer: [place] Disclaimer: This electronic medical record was generated, in whole or in part, using a voice recognition dictation system. (ROBI HARVEY APRN) Departure Departure Impression: Primary Impression: Abdominal pain Qualified Codes: R10.84 - Generalized abdominal pain Additional Impression: Poorly controlled type 2 diabetes mellitus Disposition: HOME / SELF CARE / HOMELESS Condition: GOOD Referrals: PATRIA HUNT MD (PCP) Patient Instructions: Abdominal Pain, Type 2 Diabetes Mellitus, Adult Additional Instructions: You were seen today in the emergency department for abdominal pain. An extensive abdominal work-up was performed, your CT abdomen pelvis with contrast did not show any concerning findings, you do not have a urinary tract infection. Your pain was controlled with medications given in the ED today. Please follow-up with your primary care physician for ongoing diabetes management as we discussed at length. Thank you for visiting our Emergency Department. It was a pleasure taking care of you today in the emergency department and we appreciate you trusting us with your care. If any additional problems come up don't hesitate to return to visit us. Please follow up with your primary care provider so they can plan additional care if needed and know about the problem that you had. If symptoms worsen come back to the Emergency Department. Any concerning symptoms that start such as chest pain, shortness of air, weakness or numbness on one side of the body, running high fevers or any other concerning symptoms return to the ER. EMERGENCY DEPARTMENT GENERAL DISCHARGE INSTRUCTIONS Thank you for coming to [facility] Emergency Department (ED) today and trusting us with you care. We trust that you had a positive experience in our Emergency Department. If you wish to speak to the department management, you may call the Director at [phone]. YOUR FOLLOW UP INSTRUCTIONS ARE FOLLOWS: 1. Do you have a private Doctor? If you do not have a private doctor, please ask for a resource list of physicians or clinics that may be able to assist you with fol low up care. 2. The Emergency Physicain has interpreted your x-rays. The X-Ray specialist will also review them. If there is a change in the findings, you will be notified in 48 hours when at all possible. 3. A lab test or culture has been done, your results will be reviewed and you will be notified if you need a change in treatment. ADDITIONAL INSTRUCTIONS AND INFORMATION: 1. Your care today has been supervised by a physician who is specially trained in emergency care. Many problems require more than one evaluation for a complete diagnosis and treatment. We recommend that you schedule your follow up appointment as recommended to ensure complete treatment of you illness or injury. If you are unable to obtain follow up care and continue to have a problem, or if your condition worsens, we recommend that you return to the ED. 2. We are not able to safely determine your condition over the phone nor are we able to give sound medical advice over the phone. For these safety reasons, if you call for medical advice we will ask you to come to the ED for further evaluation. 3. If you have any questions regarding these discharge instructions please call the ED at [phone]. SAFETY INFORMATION: In the interest of safety, wellness, and injury prevention; we encourage you to wear your sealbelt, if you smoke; quite smoking, and we encourage family to use a p rotective helmet for bicycling and other sporting events that present an increased risk for head injury. IF YOUR SYMPTOMS WORSEN OR NEW SYMPTOMS DEVELOP, OR YOU HAVE CONCERNS ABOUT YOUR CONDITION; OR IF YOUR CONDITION WORSENS WHILE YOU ARE WAITING FOR YOUR FOLLOW UP APPOINTMENT; EITHER CONTACT YOUR PRIMARY CARE DOCTOR, THE PHYSICIAN WHOSE NAME AND NUMBER YOU WERE GIVEN, OR RETURN TO THE ED IMMEDIATELY. ROBI HARVEY APRN Sep 19, 2020 13:22 HALLIE PEREZ DO Sep 19, 2020 14:54
[2020-09-19] MEDS ORDERED: CONTRAST GIVEN. MC PRN (13:30)
--- NOTE | 2020-09-19 13:50 | RAD ---
CT ABDOMEN+PELVIS W History: Upper left and right abdominal pain, hematuria, nausea, diarrhea, vomiting. Comparison: CT abdomen and pelvis 04/19/2019. Technique: CT of the abdomen and pelvis with intravenous contrast. Findings: The lung bases are clear. The heart is unremarkable. The liver, gallbladder, pancreas, spleen, and adrenal glands are unremarkable. 1.8 cm left renal cyst . No hydronephrosis or nephrolithiasis. No perinephric fat stranding. The stomach is decompressed. Small bowel is unremarkable without evidence for obstruction. Normal tiffany endix. Colon is unremarkable without wall thickening or pericolonic inflammatory changes. No abdominal free air or free fluid. The uterus and adnexa are unremarkable. The bladder is within no rmal limits. Normal vasculature. No adenopathy. Osseous structures and soft tissues are unremarkable. Impression: 1. No acute findings in the abdomen and pelvis. 2. Previously described indeterminant hypodensity in the left kidney measures fluid attenuation on c urrent exam consistent with benign cyst. ------ Exposure: One or more of the following individualized dose reduction techniques were utilized for thi s examination: 1. Automated exposure control 2. Adjustment of the mA and/or kV according to patient size 3. Use of iterative reconstruction technique. Electronically signed by: Sergio Ch MD (09/19/2020 1:48 PM) [id number]
--- NOTE | 2020-09-19 14:19 | EKG ---
[facility] [address] [place] [address] Test Date: 2020-09-19 Test Time: 11:34:53 Pat Name: HILDA RG Department: Room: Gender: F [employer]: : 1980 Requested By: ROBI HARVEY Order Number: [id number] Reading MD: Measurements Intervals [place] Rate: 66 P: 25 VT: 168 QRS: -7 QRSD: 92 T: 10 QT: 408 QTc: 429 Interpretive Statements SINUS RHYTHM LEFTWARD AXIS OTHERWISE NORMAL ECG RI6.02 No previous ECG available for comparison
[2020-09-19 14:23] VITALS: BP 123/80
--- NOTE | 2020-09-20 17:33 | NUR ---
IP: Informed pt of negative covid test. Pt verbalized understanding
== END 2020-09-19 14:34 | disposition home or self-care (01) ==
LOC: ER 09:55
DX: R10.84 Generalized abdominal pain (principal); Z20.822 Contact with and (suspected) exposure to COVID-19; E11.9 Type 2 diabetes mellitus without complications; J45.909 Unspecified asthma, uncomplicated; K21.9 Gastro-esophageal reflux disease without esophagitis; E78.00 Pure hypercholesterolemia, unspecified; I10 Essential (primary) hypertension; E66.01 Morbid (severe) obesity due to excess calories; Z68.43 Body mass index [BMI] 50.0-59.9, adult
CPT/HCPCS: 36415; 71045; 74177; 80053; 81001; 81025; 82010; 82553; 82962; 83690; 84484; 85025; 87426; 93005; 96361; 96374; 96375; 99285; J2405; J3010; J7030; Q9967; U0003

== ENCOUNTER 2021-02-23 11:57 | Emergency (ER) | payer MEDICAID ==
[~2021-02-23] VITALS: Ht 157.5 cm; Wt 127.3 kg
[2021-02-23] MEDS ORDERED: IBUPROFEN 200 MG TABLET. PO ONE (13:15)
[2021-02-23] MEDS ORDERED: DEXAMETHASONE 4 MG TABLET PO ONE (13:15)
--- NOTE | 2021-02-23 13:20 | PHYS DOC ---
Past Medical History Past Medical History: Asthma, Cancer, Diabetes-Type II, GERD, High Cholesterol, Hypertension, Other Additional Past Medical Histor: morbid obesity, PCOS, cervical cancer Past Surgical History: Tonsillectomy, Other Additional Past Surgical Histo: right eye surgery, ear tubes, laser removal of cervical cancer Smoking Status: Never Smoker Alcohol Use: None Drug Use: None General Adult EDM: Chief Complaint: FLU SYMPTOM HPI: HPI: Patient is a 40 year old female who presents with 5 days of sore throat, shortness of breath, fever, body aches, intermittent cough, bilateral ear pain. Patient's child at home has Covid. Patient states that she took a at home Covid test and sent it out and she has not heard back from them yet. She states her throat is hurting so bad that she has a hard time swelling. She is eating and drinking appropriately. Denies nausea, vomiting, chest pain, headache, dizziness, syncope, numbness or tingling, focal weakness, diarrhea, abdominal pain. She states the last time she took any Tylenol or ibuprofen was yesterday. Rating her pain at 8 out of 10 at this time. History of high cholesterol, GERD, hypertension, asthma, cervical cancer with surgery, morbid obesity, PCOS, tonsillectomy. Patient is vaccinated for Covid. Review of Systems: Review of Systems: Constitutional: + fever or +chills. [] Eyes: Denies change in visual acuity. [] HENT: Denies nasal congestion or +sore throat. + Bilateral ear pain [] Respiratory: + Intermittent cough or + intermittent shortness of breath. [] Cardiovascular: Denies chest pain or edema. [] GI: Denies abdominal pain, nausea, vomiting, bloody stools or diarrhea. [] : Denies dysuria. [] Musculoskeletal: Denies back pain or joint pain. + Generalized body aches [] Integument: Denies rash. [] Neurologic: Denies headache, focal weakness or sensory changes. [] Endocrine: Denies polyuria or polydipsia. [] Lymphatic: Denies swollen glands. [] Psychiatric: Denies depression or anxiety. [] Heart Score: C/O Chest Pain: No Allergies: Allergies: Allergies Coded Allergies Type Severity Reaction Last Updated Verified No Known Drug Allergies 11/11/18 No Physical Exam: PE: Constitutional: Well developed, well nourished, no acute distress, non-toxic appearance. [] HENT: Normocephalic, atraumatic, bilateral external ears normal, oropharynx moist, no oral exudates, nose normal. Throat is reddened but there is no exudates. [] Eyes: PERRLA, EOMI, conjunctiva normal, no discharge. [] Neck: Normal range of motion, no tenderness, supple, no stridor. [] Cardiovascular:Heart rate regular rhythm, no murmur [] Lungs & Thorax: Bilateral breath sounds clear to auscultation [] Abdomen: Bowel sounds normal, soft, no tenderness, no masses, no pulsatile masses. [] Skin: Warm, dry, no erythema, no rash. [] Back: No tenderness, no CVA tenderness. [] Extremities: No tenderness, no cyanosis, no clubbing, ROM intact, no edema. [] Neurologic: Alert and oriented X 3, normal motor function, normal sensory function, no focal deficits noted. [] Psychologic: Affect normal, judgement normal, mood normal. [] EKG: EKG: [] Radiology/Procedures: Radiology/Procedures: [] Impression: [facility] [address] [place] [address] IMAGING REPORT Signed PATIENT: HILDA RG ACCOUNT: [id number] : 1980 LOCATION: ER AGE: 40 SEX: F EXAM STATUS: REG ER ORD. PHYSICIAN: VANDA GALEAS APRN REASON: SOA PROCEDURE: PORTABLE CHEST 1V Single view of the chest. 02/23/2021 1:21 PM Indication: Reason: SOA / Spl. Instructions: / History: Comparison: Chest radiograph September 19, 2020 Findings: There is no focal consolidation. There is no pleural effusion or pneumothorax. The cardiomediastinal silhouette and pulmonary vasculature are within normal limits. No acute osseous abnormalities are seen. Impression: No evidence of acute cardiopulmonary process. Electronically signed by: Brooks Putnam MD (02/23/2021 1:31 PM) [id number] DICTATED and SIGNED BY: BROOKS PUTNAM MD DATE: 02/23/21 [id number] Course & Med Decision Making: Course & Med Decision Making Pertinent Labs and Imaging studies reviewed. (See chart for details) COVID-19 CRITERIA: The patient was evaluated during the global COVID-19 pandemic, and that diagnosis was suspected/considered upon their initial presentation. Their evaluation, treatment and testing was consistent with current guidelines for patients who present with complaints or symptoms that may be related to COVID-19. See HPI. Alert and oriented x4. Ambulatory steady gait. Speaks in full clear sentences. Throat is reddened there is no exudates. She has had a tonsillectomy. Lungs are clear to auscultation in upper lobes and diminished in lower lobes. Swallowing saliva. Uvula midline. No rashes. No respiratory distress. Bilateral tympanic's intact and white. Rapid Covid negative, rapid strep negative, rapid flu negative. She is given a dose of dexamethasone in the ED. Patient is to remain quarantined at home. I will give patient a DuoNeb here in the ED and then she will be sent home with a prescription for an inhaler. Chest x-ray is clear. [] Cesiaon Disclaimer: [place] Disclaimer: This electronic medical record was generated, in whole or in part, using a voice recognition dictation system. COVID-19 Patient Risks: Age 65 or older: No Sign of co-morbidity: Yes Exp to person + for COVID: Yes Exp to PUI: Yes Travel from affected area: No Lower respiratory symptoms: Yes Fever: Yes Other: Yes (SORE THROAT) PPE Use: Full PPE with N95 mask or PAPR: Yes Departure Departure Impression: Primary Impression: Person under investigation for COVID-19 Additional Impressions: Sore throat Ear pain Qualified Codes: H92.03 - Otalgia, bilateral Disposition: HOME / SELF CARE / HOMELESS Condition: STABLE Referrals: PATRIA HUNT MD (PCP) Patient Instructions: Fever, Adult, Sore Throat Additional Instructions: Follow-up with your primary care provider. Remain quarantine. Your send out Covid test will be back in 24 to 48 hours and you will be called if it is positive. Your rapid Covid, rapid flu, rapid strep was negative today. Take Tylenol and ibuprofen alternating to help with fever and pain. Drink plenty of fluids to stay hydrated. If you begin having severe shortness of breath, chest pain or you cannot keep down fluids return to the emergency room. You have been tested for or diagnosed with COVID-19. It is an infection caused by a new type of coronavirus. COVID-19 will cause cold-like or mild flu symptoms in most. It can cause more severe symptoms like problems breathing in some. There is no treatment for COVID-19. The body will clear the infection over time. Self-care will help to ease discomfort. Steps to Take: Self-Care Rest as needed. Healthy habits may help you feel better. Steps include: Choose healthy foods including fruits and vegetables. Drink water throughout the day. Get plenty of sleep each night. If you smoke, try to quit. It may ease breathing. Avoid alcohol. Keep Others Healthy The virus can spread to others. Droplets are released every time you sneeze or cough. The droplets can get into the mouth, nose, or eyes of people near you and lead to infection. To lower the chances of spreading COVID-19 to others: Stay at home until your doctor has said it is safe to leave. If you tested positive this will mean staying isolated until both of the following are true: At least 7 days have passed since the start of illness. You are free of fever for at least 72 hours without the use of medicine. During this time: - Avoid public areas, events, or transportation. Do not return to work or school until your doctor has said it is safe to do so. - Call ahead if you need to go to a medical center. Let them know you may have COVID-19. It will help them guide you where to go. They may also ask you to wear a facemask when you come to the office. - If you call for emergency medical services, let them know you may have COVID- 19. While at home: - Try to avoid close contact with others. Stay about 6 feet away. - If possible, spend most of your time in a separate room from others. - Use a face mask if you will be in close contact with others such as sharing a room or vehicle. - Have someone wipe down common surfaces in the home. Use household quilt maker every day on areas like doorknobs, counters, or sinks. - Cough or sneeze into a tissue. Throw the tissue away right after use. If a tissue is not available, cough or sneeze into your elbow. - Wash your hands often. Wash them after sneezing or coughing. Use soap and water and wash for at least 20 seconds. Alcohol based hand carpet cleaner can be used if soap and water is not available. - Do not prepare food for others. Avoid sharing personal items like forks, spoons, or toothbrushes. - Avoid close contact with pets while you are sick. There is no evidence of the virus passing to pets. This is a safety step until more is known about this virus. Isolation can be frustrating. Social interaction can help. Keep in touch with friends and family through phone and tech options. You can still interact with others in your home, just keep a safe distance of about 6 feet. Follow-up: Your doctors office will check in with you to see if there are any changes in your health. You may be asked to keep track of symptoms to share with them. They will also let you know when you are clear to be in public again. Problems to Look Out For: Contact your doctor if your recovery is not going as you expect. Get emergency care if you have problems such as: - Trouble breathing - Nonstop chest pain or pressure - Changes in awareness, confusion, or problems waking - Lips or face have bluish color - Worsening of symptoms If you think you have an emergency, call for emergency medical services right away. As taken from [facility] Albuterol Sulfate (PROAIR HFA INHALER) 8.5 Gm Hfa.aer.ad 1-2 PUFF INH PRN Q6HRS PRN for SHORTNESS OF BREATH, #1 EACH 0 Refills Prov: VANDA GALEAS DIRECTOR MOBILE 02/23/21 Methylprednisolone (MEDROL) 4 Mg Tab.ds.pk 1 PKG PO UD, #1 PKG START TOMORROW 02/24/21 Prov: VANDA GALEAS DIRECTOR MOBILE 02/23/21 VANDA GALEAS DIRECTOR MOBILE Feb 23, 2021 13:20
--- NOTE | 2021-02-23 13:34 | RAD ---
Single view of the chest. 02/23/2021 1:21 PM Indication: Reason: SOA / Spl. Instructions: / History: Comparison: Chest radiograph September 19, 2020 Findings: There is no focal consolidation. There is no pleural effusion or pneumothorax. The cardiome diastinal silhouette and pulmonary vasculature are within normal limits. No acute osseous abnormaliti es are seen. Impression: No evidence of acute cardiopulmonary process. Electronically signed by: Brooks Killian MD (02/23/2021 1:31 PM) [id number]
[2021-02-23 13:44] LABS: BILIRUBIN,URINE NEGATIVE (NEG); CLARITY,URINE CLEAR; COLOR,URINE AMBER; NITRITE,URINE NEGATIVE (NEG); PH,URINE 5.5 (<5.0-8.0); PROTEIN,URINE 30 mg/dL (NEG-TRACE); UROBILINOGEN,URINE 0.2 mg/dL (0.2 mg/dL)
[2021-02-23 14:03] LABS: HYALINE CASTS, URINE MODERATE /HPF
[2021-02-23 14:04] LABS: BACTERIA,URINE 0 /HPF (0-FEW)
[2021-02-23 14:10] LABS: INFLUENZA A PATIENT NEGATIVE (NEGATIVE); INFLUENZA B PATIENT NEGATIVE (NEGATIVE)
[2021-02-23] MEDS ORDERED: ALBU2.5V8 INH (14:17)
[2021-02-23] MEDS ORDERED: METH4TAB2 PO (14:17)
[2021-02-23] MEDS ORDERED: IPRATRPIUM/ALBUTEROL 0.5/2.5MG 3 ML NEBU. NEB ONE (14:45)
[2021-02-23 14:56] VITALS: BP 165/96
--- NOTE | 2021-02-26 11:41 | NUR ---
IP: Informed pt of negative covid test. Pt verbalized understanding.
== END 2021-02-23 15:02 | disposition home or self-care (01) ==
LOC: ER 11:57
DX: J02.9 Acute pharyngitis, unspecified (principal); Z20.822 Contact with and (suspected) exposure to COVID-19; H92.03 Otalgia, bilateral; R06.02 Shortness of breath; M79.10 Myalgia, unspecified site; E11.9 Type 2 diabetes mellitus without complications; K21.9 Gastro-esophageal reflux disease without esophagitis; E78.00 Pure hypercholesterolemia, unspecified; I10 Essential (primary) hypertension; J45.909 Unspecified asthma, uncomplicated; E66.01 Morbid (severe) obesity due to excess calories; Z68.43 Body mass index [BMI] 50.0-59.9, adult
CPT/HCPCS: 71045; 81001; 87070; 87880; 94640; 99284; U0003; U0005

== ENCOUNTER 2021-07-12 12:36 | Emergency (ER) | payer MEDICAID ==
[~2021-07-12] VITALS: Ht 157.5 cm; Wt 130.0 kg
[2021-07-12 12:36] VITALS: BP 153/78
--- NOTE | 2021-07-12 12:51 | ED.ADGEN ---
Past Medical History Past Medical History: Asthma, Cancer, Diabetes-Type II, GERD, High Cholesterol, Hypertension, Other Additional Past Medical Histor: morbid obesity, PCOS, cervical cancer Past Surgical History: Tonsillectomy, Other Additional Past Surgical Histo: right eye surgery, ear tubes, laser removal of cervical cancer Smoking Status: Never Smoker Alcohol Use: None Drug Use: None General Adult EDM: Chief Complaint: SORE THROAT HPI: HPI: Patient is a 40-year-old female who arrives ambulatory to the emergency department complaints of a sore throat as well as bilateral ear pain. Patient reports over the past 2 days she is experienced a sore throat as well as progression to pain in her ears. Patient states during this time she has felt warm however she is unaware of any fevers. She further denies any difficulty swallowing and states she has not had any coughing or shortness of air. Mo reover she denies any chest pain. She is awake, alert and nontoxic-appearing. Review of Systems: Review of Systems: Constitutional: Denies fever or chills. [] Eyes: Denies change in visual acuity. [] HENT: Reports otalgia bilaterally as well as a sore throat. Denies nasal congestion. [] Respiratory: Denies cough or shortness of breath. [] Cardiovascular: Denies chest pain or edema. [] GI: Denies abdominal pain, nausea, vomiting, bloody stools or diarrhea. [] : Denies dysuria. [] Musculoskeletal: Denies back pain or joint pain. [] Integument: Denies rash. [] Neurologic: Denies headache, focal weakness or sensory changes. [] Endocrine: Denies polyuria or polydipsia. [] Lymphatic: Denies swollen glands. [] Psychiatric: Denies depression or anxiety. [] Allergies: Allergies: Allergies Coded Allergies Type Severity Reaction Last Updated Verified No Known Drug Allergies 11/11/18 No Physical Exam: PE: Constitutional: Morbidly obese. Well developed, well nourished, no acute distress, non-toxic appearance. [] HENT: Normocephalic, atraumatic, bilateral external ears normal, oropharynx moist, no oral exudates, nose normal. [] Eyes: PERRLA, EOMI, conjunctiva normal, no discharge. [] Neck: Normal range of motion, no tenderness, supple, no stridor. [] Cardiovascular:Heart rate regular rhythm, no murmur [] Lungs & Thorax: Bilateral breath sounds clear to auscultation [] Abdomen: Bowel sounds normal, soft, no tenderness, no masses, no pulsatile masses. [] Skin: Warm, dry, no erythema, no rash. [] Back: No tenderness, no CVA tenderness. [] Extremities: No tenderness, no cyanosis, no clubbing, ROM intact, no edema. [] Neurologic: Alert and oriented X 3, normal motor function, normal sensory function, no focal deficits noted. [] Psychologic: Affect normal, judgement normal, mood normal. [] Current Patient Data: Labs: Laboratory Tests Test 07/12/21 12:48 Group A Streptococcus Rapid Negative (NEGATIVE) Vital Signs: Vital Signs Date Time Temp Pulse Resp B/P (MAP) Pulse Ox O2 Delivery O2 Flow Rate FiO2 07/12/21 12:36 99.2 93 18 153/78 (103) 97 Room Air 99.2 EKG: EKG: [] Heart Score: C/O Chest Pain: No Risk Factors: Risk Factors: DM, Current or recent (<one month) smoker, HTN, HLP, family history of CAD, obesity. Risk Scores: Score 0 - 3: 2.5% MACE over next 6 weeks - Discharge Home Score 4 - 6: 20.3% MACE over next 6 weeks - Admit for Clinical Observation Score 7 - 10: 72.7% MACE over next 6 weeks - Early Invasive Strategies Radiology/Procedures: Radiology/Procedures: [] Course & Med Decision Making: Course & Med Decision Making Pertinent Labs and Imaging studies reviewed. (See chart for details) [] Dragon Disclaimer: Dragon Disclaimer: This electronic medical record was generated, in whole or in part, using a voice recognition dictation system. Departure Departure Impression: Primary Impression: Pharyngitis Disposition: HOME / SELF CARE / HOMELESS Condition: STABLE Referrals: PATRIA HUNT MD (PCP) Patient Instructions: Viral Pharyngitis, Viral Syndrome Scripts Methylprednisolone (MEDROL) 4 Mg Tab.ds.pk 1 PKG PO UD for inflammation for 7 Days, #1 PKG Prov: GEORGE BLUE DO 07/12/21 GEORGE BLUE DO July 12, 2021 12:51
[2021-07-12] MEDS ORDERED: METH4TAB2 PO (13:18)
== END 2021-07-12 13:20 | disposition home or self-care (01) ==
LOC: ER 12:36
DX: J02.9 Acute pharyngitis, unspecified (principal); H92.03 Otalgia, bilateral; E11.9 Type 2 diabetes mellitus without complications; K21.9 Gastro-esophageal reflux disease without esophagitis; E78.00 Pure hypercholesterolemia, unspecified; I10 Essential (primary) hypertension; J45.909 Unspecified asthma, uncomplicated; E66.01 Morbid (severe) obesity due to excess calories; Z68.43 Body mass index [BMI] 50.0-59.9, adult
CPT/HCPCS: 87070; 87147; 87880; 99283